=== PATIENT | female | born 1970 | race Caucasian/White ===

== ENCOUNTER 2020-11-02 14:03 | Emergency (ER) | payer BC, OTHER ==
[2020-11-02] MEDS ORDERED: Aspirin 81 MG Tab.Chew PO ONE (14:12)
[2020-11-02] MEDS ORDERED: Metoprolol Tartrate 5 MG/5 ML SDV IVPUSH ONE ×3 (14:12→16:22)
[2020-11-02] MEDS ORDERED: Nitroglycerin 0.4 MG Tab.SL SL PRN (14:12)
[2020-11-02] MEDS ORDERED: Sodium Chloride 0.9% 1,000 ML IV ONE (14:14)
--- NOTE | 2020-11-02 14:19 | EDM.PDOC ---
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 Denies: Shortness of Breath, Cough Cardiovascular: Reports: Chest Pain Endocrine: Reports: No Symptoms GI/Abdominal: Reports: No Symptoms : Reports: No Symptoms Musculoskeletal: Reports: No Symptoms Skin: Reports: No Symptoms Neurological: Reports: No Symptoms Psychiatric: Reports: No Symptoms Hematologic/Lymphatic: Reports: No Symptoms Immunologic: Reports: No Symptoms ED EXAM, GENERAL - Physical Exam Exam: See Below Exam Limited By: No Limitations General Appearance: Alert, WD/WN, No Apparent Distress Nose: Normal Inspection Throat/Mouth: Normal Inspection, Normal Voice, No Airway Compromise Head: Atraumatic, Normocephalic Neck: Normal Inspection, Supple, Non-Tender, Full Range of Motion. No: Lymphadenopathy (R), Lymphadenopathy (L) Respiratory/Chest: No Respiratory Distress, Lungs Clear, Normal Breath Sounds, Chest Non-Tender Cardiovascular: No Edema, No Gallop, No Murmur, Tachycardia GI/Abdominal: Soft, Non-Tender, No Organomegaly, No Distention Back Exam: Normal Inspection, Full Range of Motion. No: CVA Tenderness (R), CVA Tenderness (L) Extremities: Normal Inspection, Non-Tender, No Pedal Edema Neurological: Alert, Oriented, CN II-XII Intact, Normal Cognition, No Motor/Sensory Deficits Psychiatric: Normal Affect, Normal Mood Skin Exam: Warm, Dry, Intact, Normal Color, No Rash Lymphatic: No Adenopathy Course - Vital Signs Last Recorded V/S: Last Vital Signs Temp Pulse 80 11/02/20 15:10 Resp 20 11/02/20 14:10 BP 148/94 H 11/02/20 15:10 Pulse Ox 97 11/02/20 14:10 - Orders/Labs/Meds Orders: Active Orders 24 hr Category Date Time Status EKG Documentation Completion [RC] ASDIRECTED Care 11/02/20 14:14 Active EKG Documentation Completion [RC] ASDIRECTED Care 11/02/20 14:33 Active CORONAVIRUS COVID-19 RADHA [MOLEC] Stat Lab 11/02/20 15:33 Ordered UA W/MICROSCOPIC [URIN] Stat Lab 11/02/20 14:14 Ordered Heparin Sodium/0.45% NaCl [Heparin 25,000 Units in 1/2 Med 11/02/20 15:00 Ordered NS 500 ML] 25,000 units in 500 ml IV TITRATE Nitroglycerin [Nitrostat] Med 11/02/20 14:12 Active 0.4 mg SL Q5M PRN Nitroglycerin/D5W [Nitroglycerin 25 MG/D5W 250 ML] Med 11/02/20 15:15 Ordered 25 mg in 250 ml IV TITRATE EKG 12 Lead [EK] Routine Ther 11/02/20 14:14 Ordered EKG 12 Lead [EK] Routine Ther 11/02/20 14:33 Ordered Medication Orders Heparin Sodium/Sodium Chloride (Heparin 25,000 Units In 1/2 Ns 500 Ml) 25,000 units in 500 mls @ 15.023 mls/hr IV TITRATE MINNIE; Protocol Nitroglycerin/Dextrose (Nitroglycerin 25 Mg/D5w 250 Ml) 25 mg in 250 mls @ 3 mls/hr IV TITRATE MINNIE; Protocol Last Admin: 11/02/20 15:24 Dose: 5 mcg/min, 3 mls/hr Documented by: LYLA Nitroglycerin (Nitroglycerin 0.4 Mg Tab.Sl) 0.4 mg SL Q5M PRN PRN Reason: Chest Pain Last Admin: 11/02/20 14:12 Dose: 0.4 mg Documented by: LYLA Labs: Laboratory Tests 11/02/20 11/02/20 11/02/20 Range/Units 14:30 14:30 14:30 WBC 11.8 H (3.0-10.3) x10-3/uL RBC 5.11 (3.60-5.20) x10(6)uL Hgb 14.7 (11.4-15.5) g/dL Hct 44.0 (34.2-48.2) % MCV 86.2 (76.7-100.5) fL MCH 28.7 (23.9-33.9) pg MCHC 33.3 (31.9-34.8) g/dL RDW 13.2 (12.3-16.5) % Plt Count 339 (151-488) x10(3)uL MPV 7.2 (7.1-12.4) fL Neut % (Auto) 72.2 (30.8-76.2) % Lymph % (Auto) 20.4 (18.4-52.1) % Menard % (Auto) 6.3 (4.4-15.7) % Eos % (Auto) 0.8 (0.6-8.1) % Baso % (Auto) 0.3 (0.2-1.5) % Neut # (Auto) 8.5 H (1.5-6.3) x10-3/uL Lymph # (Auto) 2.4 (1.0-4.4) x10-3/uL Menard # (Auto) 0.7 (0.3-1.0) x10-3/uL Eos # (Auto) 0.1 (0.0-0.8) x10-3/uL Baso # (Auto) 0.0 (0.0-0.1) x10-3/uL PT (9.0-11.1) sec INR (1.00-1.24) APTT (24.4-33.2) SECONDS D-Dimer, Quantitative 0.25 (0.0-0.59) mg/LFEU Sodium 139 (135-145) mmol/L Potassium 3.6 (3.5-5.3) mmol/L Chloride 99 L (100-110) mmol/L Carbon Dioxide 26 (21-32) mmol/L BUN 4 L (7-18) mg/dL Creatinine 0.8 (0.55-1.02) mg/dL Est Cr Clr Drug Dosing 78.76 mL/min Estimated GFR (MDRD) > 60 (>60) BUN/Creatinine Ratio 5.0 L (9-20) Glucose 88 (80-116) mg/dL Calcium 8.9 (8.6-10.2) mg/dL Total Bilirubin 0.4 (0.1-1.3) mg/dL AST 28 H (5-25) IU/L ALT 31 (12-36) U/L Alkaline Phosphatase 100 (56-112) IU/L Troponin I (4.0-60.3) pg/mL C-Reactive Protein (0.5-0.9) mg/dL Total Protein 7.9 (6.0-8.0) g/dL Albumin 3.6 (3.5-5.2) g/dL Globulin 4.3 g/dL Albumin/Globulin Ratio 0.8 11/02/20 11/02/20 Range/Units 14:30 14:30 WBC (3.0-10.3) x10-3/uL RBC (3.60-5.20) x10(6)uL Hgb (11.4-15.5) g/dL Hct (34.2-48.2) % MCV (76.7-100.5) fL MCH (23.9-33.9) pg MCHC (31.9-34.8) g/dL RDW (12.3-16.5) % Plt Count (151-488) x10(3)uL MPV (7.1-12.4) fL Neut % (Auto) (30.8-76.2) % Lymph % (Auto) (18.4-52.1) % Menard % (Auto) (4.4-15.7) % Eos % (Auto) (0.6-8.1) % Baso % (Auto) (0.2-1.5) % Neut # (Auto) (1.5-6.3) x10-3/uL Lymph # (Auto) (1.0-4.4) x10-3/uL Menard # (Auto) (0.3-1.0) x10-3/uL Eos # (Auto) (0.0-0.8) x10-3/uL Baso # (Auto) (0.0-0.1) x10-3/uL PT 9.8 (9.0-11.1) sec INR 0.90 L (1.00-1.24) APTT 22.9 L (24.4-33.2) SECONDS D-Dimer, Quantitative (0.0-0.59) mg/LFEU Sodium (135-145) mmol/L Potassium (3.5-5.3) mmol/L Chloride (100-110) mmol/L Carbon Dioxide (21-32) mmol/L BUN (7-18) mg/dL Creatinine (0.55-1.02) mg/dL Est Cr Clr Drug Dosing mL/min Estimated GFR (MDRD) (>60) BUN/Creatinine Ratio (9-20) Glucose (80-116) mg/dL Calcium (8.6-10.2) mg/dL Total Bilirubin (0.1-1.3) mg/dL AST (5-25) IU/L ALT (12-36) U/L Alkaline Phosphatase (56-112) IU/L Troponin I 1234.4 H* (4.0-60.3) pg/mL C-Reactive Protein 1.4 H (0.5-0.9) mg/dL Total Protein (6.0-8.0) g/dL Albumin (3.5-5.2) g/dL Globulin g/dL Albumin/Globulin Ratio Meds: Medications Generic Name Dose Route Start Last Admin Trade Name Sean PRN Reason Stop Dose Admin Heparin Sodium/Sodium Chloride 25,000 units in 500 mls @ 15.023 mls/hr 11/02/20 15:00 Heparin 25,000 Units In 1/2 Ns 500 Ml IV TITRATE MINNIE Protocol 12 UNITS/KG/HR Nitroglycerin/Dextrose 25 mg in 250 mls @ 3 mls/hr 11/02/20 15:15 11/02/20 15:24 Nitroglycerin 25 Mg/D5w 250 Ml IV 5 mcg/min TITRATE MINNIE 3 mls/hr Administration Protocol 5 MCG/MIN Nitroglycerin 0.4 mg 11/02/20 14:12 11/02/20 14:12 Nitroglycerin 0.4 Mg Tab.Sl SL 0.4 mg Q5M PRN Administration Chest Pain Discontinued Medications Generic Name Dose Route Start Last Admin Trade Name Sean PRN Reason Stop Dose Admin Aspirin 324 mg 11/02/20 14:12 11/02/20 14:10 Aspirin 81 Mg Tab.Chew PO 11/02/20 14:13 324 mg ONETIME ONE Administration Sodium Chloride 1,000 mls @ 999 mls/hr 11/02/20 14:14 11/02/20 14:25 Normal Saline IV 11/02/20 15:14 999 mls/hr .BOLUS ONE Administration Nitroglycerin/Dextrose Confirm 11/02/20 15:06 11/02/20 15:24 Nitroglycerin 25 Mg/D5w 250 Ml Administered 11/02/20 15:07 Not Given Dose 25 mg in 250 mls @ as directed .ROUTE .STK-MED ONE Lorazepam 0.5 mg 11/02/20 15:04 11/02/20 15:29 Lorazepam 2 Mg/Ml Sdv IVPUSH 11/02/20 15:05 0.5 mg ONETIME ONE Administration Metoprolol Tartrate 5 mg 11/02/20 14:12 11/02/20 14:20 Metoprolol Tartrate 5 Mg/5 Ml Sdv IVPUSH 11/02/20 14:13 5 mg ONETIME ONE Administration Metoprolol Tartrate 5 mg 11/02/20 15:03 11/02/20 15:10 Metoprolol Tartrate 5 Mg/5 Ml Sdv IVPUSH 11/02/20 15:04 5 mg ONETIME ONE Administration Metoprolol Tartrate Confirm 11/02/20 15:06 11/02/20 15:24 Metoprolol Tartrate 5 Mg/5 Ml Sdv Administered 11/02/20 15:07 Not Given Dose 5 mg .ROUTE .STK-MED ONE - Re-Assessments/Exams Free Text/Narrative Re-Assessment/Exam: 11/02/20 15:[address] [facility], multiple calls to [facility] over 45 minutes could not be completed [facility] reached via [phone] who reported that there main line is down Lorraine STEEN given report and is trying to reach the hospitalist 11/02/20 16:26 d/w Dr Mcgaryr hospitalist who requested that shirt presser review EKGs, these were faxed directly. [facility] just called back with a room assignment in ICU, pt notified. 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 Departure - Departure Time of Disposition: 16:25 Disposition: DC/Tfer to Acute Hospital 02 Reason for Transfer *Q: Other (cardiology consult) Clinical Impression: ST elevation (STEMI) myocardial infarction, Anterior ST segment depression, Inferior ST segment depression, Elevated C-reactive protein (CRP) Sepsis Event Note (ED) - Focused Exam Vital Signs: Vital Signs Pulse Pulse Resp BP BP Pulse Ox 11/02/20 15:10 80 148/94 H 11/02/20 14:20 100 145/91 H 11/02/20 14:12 172/105 H 11/02/20 14:10 97 20 167/102 H 97 - My Orders Last 24 Hours: My Active Orders 11/02/20 14:12 Nitroglycerin [Nitrostat] 0.4 mg SL Q5M PRN 11/02/20 14:14 EKG Documentation Completion [RC] ASDIRECTED UA W/MICROSCOPIC [URIN] Stat EKG 12 Lead [EK] Routine 11/02/20 14:33 EKG Documentation Completion [RC] ASDIRECTED EKG 12 Lead [EK] Routine 11/02/20 15:00 Heparin Sodium/0.45% NaCl [Heparin 25,000 Units in 1/2 NS 500 ML] 25,000 units in 500 ml IV TITRATE 11/02/20 15:15 Nitroglycerin/D5W [Nitroglycerin 25 MG/D5W 250 ML] 25 mg in 250 ml IV TITRATE 11/02/20 15:33 CORONAVIRUS COVID-19 RADHA [MOLEC] Stat - Assessment/Plan Last 24 Hours: My Active Orders 11/02/20 14:12 Nitroglycerin [Nitrostat] 0.4 mg SL Q5M PRN 11/02/20 14:14 EKG Documentation Completion [RC] ASDIRECTED UA W/MICROSCOPIC [URIN] Stat EKG 12 Lead [EK] Routine 11/02/20 14:33 EKG Documentation Completion [RC] ASDIRECTED EKG 12 Lead [EK] Routine 11/02/20 15:00 Heparin Sodium/0.45% NaCl [Heparin 25,000 Units in 1/2 NS 500 ML] 25,000 units in 500 ml IV TITRATE 11/02/20 15:15 Nitroglycerin/D5W [Nitroglycerin 25 MG/D5W 250 ML] 25 mg in 250 ml IV TITRATE 11/02/20 15:33 CORONAVIRUS COVID-19 RADHA [MOLEC] Stat
[2020-11-02] MEDS ORDERED: Heparin Sodium/0.45% NaCl 25,000 UNITS/500 ML BAG IV SCH (15:00)
--- NOTE | 2020-11-02 15:03 | CR ---
INDICATION: Chest pain. CHEST ONE VIEW: AP portable upright view of the chest revealed the heart to be normal in size and shape. Overlying EKG leads are noted. Mediastinum was unremarkable. A mild dextroconcave scoliosis of the lower thoracic spine is suggested. Interstitial markings are slightly prominent which may be fibrotic in nature but should be correlated clinically. A definite active infiltrate or effusion was not identified. IMPRESSION: 1. No definite acute process. 2. Somewhat prominent interstitial markings. 3. Mild scoliosis. MTDD
[2020-11-02] MEDS ORDERED: LORazepam 2 MG/ML SDV IVPUSH ONE (15:04)
[2020-11-02] MEDS ORDERED: Nitroglycerin/D5W 25 MG/250 ML BOTTLE ONE (15:06)
[2020-11-02] MEDS ORDERED: Metoprolol Tartrate 5 MG/5 ML SDV ONE (15:06)
[2020-11-02] MEDS ORDERED: Nitroglycerin/D5W 25 MG/250 ML BOTTLE IV SCH (15:15)
[2020-11-02] MEDS ORDERED: Heparin Sodium 5,000 Units/ML Vial IVPUSH ONE (15:45)
--- OUTSIDE RECORDS SUMMARY | 2020-11-04 16:03 | XMSREPORT ---
:1970 Author Organization [facility] s Address [address] [place] [address] [address] [place] [address] Care Team Providers Name Role Phone Josey Carter MD Primary Care Provider Provider, Attributed RESOURCE Attributed Provider Unavailab le Reason for Referral Comprehensive Primary Care Plus (Routine) Status Reason Specialty Diagnoses / Referred By Referred To Contact Procedures Contact New Request CARDIOLOGY Diagnoses NSTEMI (non-ST elevated myocardial infarction) (HCC) Rafael Arreola MD o Cardiology [address] [address] [place], [place] Phone: [phone] Fax: Scheduling Instructions This is an electronic referral. Reason for Visit Reason Comments Auth/Cert Status Reason Specialty Diagnoses / Procedures Referred By C ontact Referred To Contact Encounter Details Date Type Department Care Team Description 11/02/2020 - [facility] Provider, Generic Hosp Pr ocedure NSTEMI (non-ST 11/04/2020 Encounter CENTER [facility] Shobha Reaves MD [address] [place] [address] [phone] elevated myocardial [address] [facility] Rafael Arreola MD [address] [place] [address] [phone] infarction) (HCC) [place] [address] Toni Mcgarry DO [address] [place] [address] [phone] Allergies No Known Active Allergiesdocumented as of this encounter (statuses as of 11/04/2020) Medications Medication Sig Dispensed Refills Start Date End Date Status ALPRAZolam (XANAX) 0.5 Take 1 tablet (0.5 30 tablet 0 08/12/19 21 Active mg tabletIndications: mg) by mouth 1 Panic attack time a day as needed for anxiety drospirenone-ethinyl TAKE 1 TABLET ONCE 84 tablet 0 10/20/2020 Active estradiol (GIANVI) DAILY 3-0.02 mg tabletIndications: control counseling Additional Information Patient taking differently: 1 tablet Oral Every evening, TAKE 1 TABLET ONCE DAILY, Reported on 11/02/2020 sertraline (ZOLOFT) 100 mg TAKE 1 AND 1/2 TABLETS 135 tablet 0 10/20/2020 Active tabletIndications: Anxiety and (150MG)ONCE DAILY depression Additional Information Patient taking differently: 150 mg Oral Every evening, TAKE 1 AND 1/2 TABLETS (150MG)ONCE DAILY, Reported on 11/02/2020 ticagrelor (BRILINTA) 90 Take 1 tablet 60 tablet 11 11/04/2020 Active mg tabletIndications: (90 mg) by NSTEMI (non-ST elevated mouth 2 times myocardial infarction) a day ([facility]) metoprolol succinate Take 1 tablet 90 tablet 0 11/05/2020 Active (TOPROL XL) 50 mg SR (50 mg) by tablet (24 mouth 1 time hr)Indications: NSTEMI per day Hold (non-ST elevated for SBP<=90 OR myocardial infarction) DBP<=60 heart ([facility]) rate <=55 atorvaSTATin (LIPITOR) Take 1 tablet 90 tablet 0 11/04/2020 Active 40 mg tabletIndications: (40 mg) by NSTEMI (non-ST elevated mouth every myocardial infarction) night at ([facility]) bedtime aspirin (ECOTRIN LOW Take 1 tablet 180 tablet 1 11/05/2020 Active STRENGTH) 81 MG enteric (81 mg) by coated mouth 1 time tabletIndications: per day NSTEMI (non-ST elevated myocardial infarction) ([facility]) ketoconazole (NIZORAL) Apply 120 mL 3 02/21/202011/04 Discontinued 2% shampooIndications: topically /2020 (Stop Taking at Seborrheic dermatitis of every night at Discharge) scalp bedtime clobetasol propionate Apply 50 mL 3 03/04/202011/04 Discontinued (TEMOVATE) 0.05% topically ( Stop Taking at solutionIndications: time a day as Discharge) Seborrheic dermatitis of needed for scalp itching or rash documented as of this encounter (statuses as of 11/04/2020) Active Problems Problem Noted Date NSTEMI (non-ST elevated myocardial infarction) 021 Generalized anxiety disorder 04/16/2018 Major depressive disorder, recurrent episode, moderate 04/16/2018 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 Anxiety and depression 04/04/2018 Panic attack 04/04/2018 documented as of this encounter (statuses as of 11/04/2020) Resolved Problems Problem Noted Date Resolved Date Routine general medical examination at formerly [facility] 009 04/04/2018 facility documented as of this encounter (statuses as of 11/04/2020) Social History Tobacco Use Types Packs/Day Years Used Date Never Smoker Smokeless Tobacco: Never Used Alcohol Use Standard Drinks/Week Comments No 0 (1 standard drink = 0.6 oz pure alcoho l) Alcohol Habits Answer Date Recorded How often do you have a drink containing alcohol? Monthly or less 11/02/2020 How many drinks containing alcohol do you have on a 1 or 2 11/02/2020 typical day when you are drinking? How often do you have six or more drinks on one Never 11/02/2020 occasion? Comment: Not asked Social Isolation Answer Date Recorded In a typical week, how many times do you More than three randy es a week 07/04/2018 talk on the phone with family, friends, or neighbors? How often do you get together with friends More than three t imes a week 07/04/2018 or relatives? How often do you attend religious or More than 4 times per year 07/04/2018 mosque services? Do you belong to any clubs or Yes 07/04/2018 organizations such as religious groups, unions, fraternal or athletic groups, or school groups? How often do you attend meetings of the More than 4 times pe r year 07/04/2018 clubs or organizations you belong to? Are you now , , , 07/04/2018 , never or living with a partner? Physical Activity Answer Date Recorded On average, how many days per week do you engage in moderate to 4 days 07/04/2018 strenuous exercise (like walking fast, running, jogging, dancing, swimming, biking, or other activities that cause a light or heavy sweat)? On average, how many minutes do you engage in exercise at th is 30 min 07/04/2018 level? Stress Answer Date Recorded Do you feel stress - tense, restless, nervous, or anxious, N ot at all 07/04/2018 or unable to sleep at night because your mind is troubled all the time - these days? Financial Resource Strain Answer Date Recorded How hard is it for you to pay for the very basics like Not h anthony at all 07/04/2018 food, housing, medical care, and heating? Intimate Partner Violence Answer Date Recorded Within the last year, have you been afraid of your partner o r No 07/04/2018 ex-partner? Within the last year, have you been humiliated or emotionall y No 07/04/2018 abused in other ways by your partner or ex-partner? Within the last year, have you been kicked, hit, slapped, or No 07/04/2018 otherwise physically hurt by your partner or ex-partner? Within the last year, have you been raped or forced to have any No 07/04/2018 kind of sexual activity by your partner or ex-partner? Food Insecurity Answer Date Recorded Within the past 12 months, you worried that your food would Never true 07/04/2018 run out before you got money to buy more. Within the past 12 months, the food you bought just didn't N ever true 07/04/2018 last and you didn't have money to get more. Transportation Needs Answer Date Recorded In the past 12 months, has lack of transportation kept you f rom No 07/04/2018 medical appointments or from getting medications? In the past 12 months, has lack of transportation kept you f rom No 07/04/2018 meetings, work, or getting things needed for daily living? Sexually Active Control Partners Comments Yes Male Sex Assigned at Date Recorded Female 10/24/2019 4:12 PM CDT documented as of this encounter Last Filed Vital Signs Vital Sign Reading Time Taken Comments Blood Pressure 130/79 11/04/2020 11:00 AM CDT Pulse 95 11/04/2020 11:00 AM CDT Temperature 36.9 C (98.4 F) 11/04/2020 12:00 PM CDT Respiratory Rate 20 11/04/2020 9:00 AM CDT Oxygen Saturation 97% 11/04/2020 11:00 AM CDT Inhaled Oxygen Concentration - - Weight 65 kg (143 lb 4.8 oz) 11/02/2020 6:00 PM CDT Height 167.6 cm (5' 6") 11/02/2020 6:00 PM CDT Body Mass Index 23.13 11/02/2020 6:00 PM CDT documented in this encounter Functional Status Functional Status Response Date of Assessment Do you have difficulty with walking, balance, climbing No 12/06/2017 stairs, or had a fall in the last 3 months? documented as of this encounter Discharge Summaries Not on filedocumented in this encounter Medications at Time of Discharge Medication Sig Dispensed Refills Start Date End Date ticagrelor (BRILINTA) 90 Take 1 tablet (90 60 tablet 11 10/09 mg tabletIndications: mg) by mouth 2 times NSTEMI (non-ST elevated a day myocardial infarction) ([facility]) metoprolol succinate Take 1 tablet (50 90 tablet 0 11/06/19 21 (TOPROL XL) 50 mg SR mg) by mouth 1 time tablet (24 hr)Indications: per day Hold for NSTEMI (non-ST elevated SBP<=90 OR DBP<=60 myocardial infarction) heart rate <=55 (HCC) atorvaSTATin (LIPITOR) 40 Take 1 tablet (40 90 tablet 0 mg tabletIndications: mg) by mouth every NSTEMI (non-ST elevated night at bedtime myocardial infarction) ([facility]) aspirin (ECOTRIN LOW Take 1 tablet (81 180 tablet 1 11/06/19 21 STRENGTH) 81 MG enteric mg) by mouth 1 time coated tabletIndications: per day NSTEMI (non-ST elevated myocardial infarction) ([facility]) drospirenone-ethinyl TAKE 1 TABLET ONCE 84 tablet 0 021 estradiol (GIANVI) 3-0.02 DAILY mg tabletIndications: control counseling sertraline (ZOLOFT) 100 mg TAKE 1 AND 1/2 135 tablet 0 10/20 tabletIndications: Anxiety TABLETS (150MG)ONCE and depression DAILY ALPRAZolam (XANAX) 0.5 mg Take 1 tablet (0.5 30 tablet 0 tabletIndications: Panic mg) by mouth 1 time attack a day as needed for anxiety documented as of this encounter Progress Notes Manda Pina, PHARM D - 11/02/2020 6:52 PM CDT 11/02/2020 6:52 PM CDT Patient was seen by pharmacy for medication reconciliation. Home medications have been reconciled and updated on the home medication list to match the patient's home usage. Manda Pina PharmD, BCCCP documented in this encounter H&P Notes Shobha Gan MD - 11/02/2020 6:34 PM CDT Hospital Admission History and Physical Assessment / Plan Dickson is a 50-year-old female with no known CAD, history of dyslipidemia, family history of heart disease who came in as a direct admit for evaluation of chest pain with elevated troponin, EKG changes. She complained of chest pain yesterday around noon, took baby aspirin and couple of Tylenols, woke up this morning again with the chest pain, took 2 Tylenol but it did not help so she reported to outside ER. Initial EKG on arrival showed ST elevation changes in aVL with reciprocal changes . Troponin was elevated 1234, the ranges of 460. Patient was given nitroglycerin and aspirin 325 which helped withthe pain, and repeat EKG showed resolved changes of ST elevation. These findings were reviewed withon-call cardiology, and patient was accepted for transfer here to [facility] floor on heparin and nitro drip Labs at OSH- trop 1234, crp 1.4 inr 0.9 ast 28 alt 31 wbc 11.8 platelets 339 dimer 0.25 sodium 139 k3.6 cr 0.8 . CXR - no acute process On arrival patient is chest pain-free. Blood pressure is 136/90, heart rate is 80. # NSTEMI With changes of ST elevation on aVL with reciprocal changes at outside hospital Risk factorsdyslipidemia, family history of heart disease Cardiology consult requested. Spoke with Dr. Newsome. Angiogram tomorrow am unless she has pain tonight or has acute ST changes on EKG - repeat stat EKG showed t wave v1 and trend troponin. - echocardiogram ordered Telemetry Lipid panel, A1c ordered Dimer negative at outside hospital Heparin and nitro drip re initiated Patient was given aspirin 325 at outside hospital will start 81 mg from tomorrow. Added metoprolol and statins #AnxietyXanax, Zoloft #Patient is on control pills CODE STATUS full code DVT prophylaxis not indicated as the patient is on heparin drip HPI / History / ROS HPI Dickson is a 50-year-old female with no known CAD, history of dyslipidemia, family history of heart disease who came in as a direct admit for evaluation of chest pain with elevated troponin, EKG changes. She complained of chest pain yesterday around noon, took baby aspirin and couple of Tylenols, woke up this morning again with the chest pain, took 2 Tylenol but it did not help so she reported to outside ER. Initial EKG on arrival showed ST elevation changes in aVL with reciprocal changes . Troponin was elevated 1234, the ranges of 460. Patient was given nitroglycerin and aspirin 325 which helped withthe pain, and repeat EKG showed resolved changes of ST elevation. These findings were reviewed withon-call cardiology, and patient was accepted for transfer here to [facility] floor on heparin and nitro drip On arrival patient is chest pain-free. Blood pressure is 136/90, heart rate is 80. Patient reported discomfort pressure-like sensation in the retrosternal area radiated to both sides and right side of the jaw. It was associated with some diaphoresis. She declined any palpitations She never had coronary angiogram She had stress test years ago that looked okay History Prior to Admission Medications Prescriptions Last Dose Informant Patient Reported? Taking? ALPRAZolam (XANAX) 0.5 mg tablet No No Sig: Take 1 tablet (0.5 mg) by mouth 1 time a day as needed for anxiety clobetasol propionate (TEMOVATE) 0.05% solution No No Sig: Apply topically 1 time a day as needed for itching or rash drospirenone-ethinyl estradiol (GIANVI) 3-0.02 mg tablet No No Sig: TAKE 1 TABLET ONCE DAILY ketoconazole (NIZORAL) 2% shampoo No No Sig: Apply topically every night at bedtime sertraline (ZOLOFT) 100 mg tablet No No Sig: TAKE 1 AND 1/2 TABLETS (150MG)ONCE DAILY Facility-Administered Medications: None No Known Allergies No past medical history on file. Past Surgical History: Procedure Laterality Date CORE NEEDLE BIOPSY LT CORE BENIGN Family History Problem Relation Age of Onset Breast Cancer Mother Breast Cancer Maternal Grandmother Social History Socioeconomic History Marital status: Spouse name: Not on file Number of children: 2 Years of education: Not on file Highest education level: Not on file Tobacco Use Smoking status: Never Smoker Smokeless tobacco: Never Used Substance and Sexual Activity Alcohol use: No Alcohol/week: 0.0 standard drinks Drug use: No Sexual activity: Yes Partners: Male Social Determinants of Health Physical Activity: Days of Exercise per Week: Minutes of Exercise per Session: Stress: Feeling of Stress : Social Connections: Frequency of Communication with Friends and Family: Frequency of Social Gatherings with Friends and Family: Attends Caodaism Services: Active Member of Clubs or Organizations: Attends Club or Organization Meetings: Marital Status: Intimate Partner Violence: Fear of Current or Ex-Partner: Emotionally Abused: Physically Abused: Sexually Abused: Financial Resource Strain: Difficulty of Paying Living Expenses: Food Insecurity: Worried About Running Out of Food in the Last Year: Ran Out of Food in the Last Year: Transportation Needs: Lack of Transportation (Medical): Lack of Transportation (Non-Medical): Review of Systems Review of Systems Constitutional: Positive for activity change. HENT: Negative for congestion. Eyes: Negative for visual disturbance. Respiratory: Negative for shortness of breath. Cardiovascular: Positive for chest pain. Gastrointestinal: Negative for abdominal pain. Genitourinary: Negative for dysuria. Musculoskeletal: Positive for arthralgias. Skin: Negative for rash. Allergic/Immunologic: Negative for immunocompromised state. Neurological: Negative for weakness. Hematological: Does not bruise/bleed easily. Psychiatric/Behavioral: Negative for agitation. Physical / Results Current Vital Signs Temp: 98.2 F (36.8 C) BP: 122/81 Weight: 65 kg (143 lb 4.8 oz) SpO2: 98 % Resp: 18 Pulse: 77 Current BMI (>50 = increased risk): 23.14 O2 Device: Room Air Pain Ratin Physical Exam HENT: Head: Normocephalic. Nose: Nose normal. Mouth/Throat: Mouth: Mucous membranes are moist. Eyes: Conjunctiva/sclera: Conjunctivae normal. Cardiovascular: Rate and Rhythm: Normal rate. Pulses: Normal pulses. Pulmonary: Effort: Pulmonary effort is normal. Abdominal: Palpations: Abdomen is soft. Musculoskeletal: Cervical back: Neck supple. Right lower leg: No edema. Left lower leg: No edema. Skin: General: Skin is warm. Neurological: Mental Status: She is alert and oriented to person, place, and time. Psychiatric: Mood and Affect: Mood normal. documented in this encounter Procedure Notes Kanchan Dior MD - 11/03/2020 3:23 PM CDT Immediate Post-Cardiac Catheterization Progress Note Att. Phys: Rafael Arreola MD Operative Date: 11/03/2020 Surgeon: Kanchan Dior MD Sand Blaster: none Pre-Operative Diagnosis: NSTEMI Post-Operative Diagnosis: 90 % OM1 treated with 2.5 x 22 resolute NIKHIL post dilated with 2.75 NC balloon to 18 LUISA pressure with excellent results.mormal EF Anesthesia Type: See Junior Brand Manager procedure log Operative Procedure: coronary angio, LHC, LVgram Specimens: None Fluids Given: See Junior Brand Manager procedure log Urine Output: See Junior Brand Manager procedure log Estimated Blood Loss: 10 mL Drains: none Findings: Coronary anatomy- Left ventriculography- Hemodynamics- Complications: None Disposition: Postoperative Condition: stable The procedure was performed using moderate conscious sedation. The patient was monitored utilizing continuous pulse oximetry, continuous telemetry/bedside cardiac monitoring and intermittent blood pressure measurements throughout the procedure without notable aberration in vitals. Please see the patients procedure log for further information. procedure start 3:00 and end time 3:23 . documented in this encounter Miscellaneous Notes Clinical Team - Annamarie Johnson RN - 11/04/2020 1:00 PM CDT Discharge Summary Attending Physician: Rafael Arreola MD Admit Date: 11/02/2020 Discharge Date: 11/04/20 Primary Care Physician: Chava Carter MD Pt discharged home at 1300 with via family vehicle. All education and concerns gone over with patient and all questions answered. All belongings sent home with patient. are Planning - Annamarie Johnson RN - 11/04/2020 10:46 AM CDT Problem: RISK FOR DECREASED CARDIAC TISSUE PERFUSION Goal: ACTIVITY TOLERANCE Description: DESCRIPTION: Physiologic response to energy-consuming movements with daily activities. 1=Severly compromised, 2=Substantially compromised, 3=Moderately compromised, 4=Mildly compromised, 5=Not compromised. Outcome: Outcome acceptable for discharge Goal: CARDIOPULMONARY STATUS Description: DESCRIPTION: Adequacy of blood volume ejected from the ventricles in exchange of carbondioxide and oxygen at the alveolar level. 1=Severe deviation from normal range, 2=Substantial deviation from normal range, 3=Moderate deviation from normal range, 4=Mild deviation from normal range, 5=No deviation from normal range. 11/04/2020 1046 by Annamarie Johnson RN Outcome: Outcome acceptable for discharge 11/04/2020 1010 by Annamarie Johnson RN Flowsheets (Taken 11/04/2020 1010) Initial Score: 4 Target Score: 5 Plan of care reviewed with: Patient Patient specific goal for the day: Patient will report no incidences of chest pain, will start new regime of cardiac medications. Patient specific goal for the stay: Patient will identify which signs and symptoms to report to her doctor, will take medications as prescribed. Achieve goal for stay: By discharge Patient Progress: Patient has no reports of chest pain, education provided, new regime of cardiac medications started. Goal: TISSUE PERFUSION: CARDIAC Description: DEFINITION: Adequacy of blood flow through the coronary vasculature to maintain heart function. 1 = Severe deviation from normal range, 2 = Substantial deviation from normal range, 3 = Moderate deviation from normal range, 4 = Mild deviation from normal range, 5 = No deviation from normal range. Outcome: Outcome acceptable for discharge are Planning - Annamarie Johnson RN - 11/04/2020 10:12 AM CDT Problem: RISK FOR DECREASED CARDIAC TISSUE PERFUSION Goal: CARDIOPULMONARY STATUS Description: DESCRIPTION: Adequacy of blood volume ejected from the ventricles in exchange of carbondioxide and oxygen at the alveolar level. 1=Severe deviation from normal range, 2=Substantial deviation from normal range, 3=Moderate deviation from normal range, 4=Mild deviation from normal range, 5=No deviation from normal range. Flowsheets (Taken 11/04/2020 1010) Initial Score: 4 Target Score: 5 Plan of care reviewed with: Patient Patient specific goal for the day: Patient will report no incidences of chest pain, will start new regime of cardiac medications. Patient specific goal for the stay: Patient will identify which signs and symptoms to report to her doctor, will take medications as prescribed. Achieve goal for stay: By discharge Patient Progress: Patient has no reports of chest pain, education provided, new regime of cardiac medications started. [facility] - Freida Graf EP - 11/04/2020 9:26 AM CDT Cardiac Rehab Phase 1 Inpatient Note: Diagnosis: Stent x1 Physical Activity Completed: Ambulate in jo Distance Ambulated: 300 feet Ambulation Assistance: independent Patient response to Exercise: good Exercise Comments: Steady gait with walking, asymptomatic. Gaitbelt used with activity Vitals Resting Heart Rate - 97 bpm Exercise Heart Rate - 113 bpm O2 Device - RA Exercise SpO2 - 95% Assessment/Plan: Tolerates activity well. Encouraged patient to ambulate in hallway 3-4 times daily as tolerated with gradual progression. -Progress as tolerated -Patient may self ambulate -Patient referred to outpatient Cardiac Rehab program -Continue to follow until until Discharge -Home activity and exercise teaching completed Recommendation: "Outpatient Cardiac Rehab- mary[facility]en Continue Inpatient Cardiac Rehab Plan of Care daily until discharge. Cardiac Rehab [facility] Pager: [phone] ase Mgmt - Freida Awan RN - 11/04/2020 8:45 AM CDT CASE MANAGEMENT / SOCIAL SERVICE FINAL TRANSITION PLAN TRANSITION DATE: 11/04 TRANSITION TIME: Per Floor INTENDED PAYER SOURCE FOR AGENCY: Not Applicable TRANSITION DESTINATION: Home w/ OP Cardiac Rehab [place], [place] DOES ACCEPTING FACILITY REQUIRE COVID TESTING BEFORE DISCHARGE: N/A TRANSITION TRANSPORTATION: Family Car TRANSPORTATION PAYMENT: Not applicable TRANSITION CHOICES OFFERED: Cardiac Rehab Home: Family/Friend Support DOES THE PATIENT HAVE A PRIMARY CARE PHYSICIAN? Yes Chava Carter MD PATIENT / SUBSTITUTE DECISION MAKER GOAL UPON TRANSITION: First Choice: Cardiac Rehab Home: Family/Friend Support PATIENT CHOICE EDUCATION: Not applicable MEDICARE 3 IP MIDNIGHT CRITERIA MET: N/A RESOURCE(S) PROVIDED: nothing needed at this time DOES PATIENT HAVE CLOTHING TO WEAR AT DISCHARGE? Yes ANTICIPATED MODE OF TRANSPORT TO AND FROM FOLLOW UP APPOINTMENTS: Drive self Family Car VERIFIED CORRECT PHARMACY IS ENTERED FOR DISCHARGE: Yes - Pharmacy: [id number] [id number] METHOD OF PRESCRIBING MEDICATIONS: Medications to be E-prescribed to above pharmacy TRANSITION ROUNDING COMPLETED WITH THE FOLLOWING: Harbor Engineer Attending MD COMMENTS / PATIENT AND FAMILY RESPONSE TO PLAN: Plan for DC home with OP Cardiac Rehab per MD, see notes/orders. Pt aware/agreeable to transition plan, family will transport. SPECIAL TRANSITION DAY INSTRUCTIONS TO NURSE / MD: Routine home discharge CURRENT READMISSION RISK SCORE / HANDOFF: Predictive Risk Score Risk of Unplanned Readmission: 7.6 Handoff given: N/A SIGNED: SARAHI Horton, senior specialist [facility] Office (Ph): [phone] [facility] (Ph): [phone] Clinical Team - Anupama Deluca RN - 11/04/2020 5:57 AM CDT Shift Summary: 190 0700 No acute events this shift. Neuro: A/O x4, PERRLA, follows commands in all extremities. Afebrile. Cardiac: HR 60-70, NSR. Denies chest pain. BP WDL. Respiratory: VSS RA GI/: Heart healthy diet, good intake. No BM this shift. Bathroom privileges, voids appropriately. Musculoskeletal: Up SBA. Pain: Denies pain. Gtts: No drips at this time. Pt slept well t/o the night. Will continue to monitor and report to oncoming shift. are Planning - Anupama Deluca RN - 11/04/2020 1:51 AM CDT Problem: RISK FOR DECREASED CARDIAC TISSUE PERFUSION Goal: TISSUE PERFUSION: CARDIAC Description: DEFINITION: Adequacy of blood flow through the coronary vasculature to maintain heart function. 1 = Severe deviation from normal range, 2 = Substantial deviation from normal range, 3 = Moderate deviation from normal range, 4 = Mild deviation from normal range, 5 = No deviation from normal range. Flowsheets (Taken 11/04/2020 0148) Initial Score: 4 Target Score: 5 Plan of care reviewed with: Patient Patient specific goal for the day: Remain free of chest pain Patient specific goal for the stay: Return to baseline Achieve goal for stay: By discharge Patient Progress: Pt had stent placement yesterday has remained free of chest pain through the night. linical Team - Annamarie Johnson RN - 11/03/2020 6:25 PM CDT [id number] Shift Summary Summary Allen Events: Angiogram performed today with one stent placed. Patient stated no chest pain throughoutthe night. Troponin levels continue to trend downward. Assessment Cardiac: HR 60-70, Rhythym Normal Sinus Rhythm, BP 140-120 SBP Respiratory: Lungs sound clear, Oxygenation stable on Room Air Neurological: Oriented x4, follows commands, afebrile, pain rated 0/10. GI/: 1 BM, voids via bathroom privileges Musculoskeletal: independent activity, turned every two hours by self. Other: NS running at 125 mL/hr. linical Team - Annamarie Johnson RN - 11/03/2020 4:07 PM CDT Upon Transfer to [facility] from [facility], skin assessment completed with Nirmala Orozco RN Upon skin assessment including pressure points findings include: noted R) radial angiogram site withband in place. No other skin issues noted. Plan/Intervention Encourage return to baseline activity, frequent repositioning in bed. Case Mgmt - Pending Sale To [facility], Freida Baires RN - 11/03/2020 9:46 AM CDT CASE MANAGEMENT / SOCIAL SERVICE TRANSITION PLAN - INITIAL ASSESSMENT TRANSITION PLAN: Awaiting Medical Doctor Recommendations for Transition Will Continue to Follow for Support and Progression Towards Final Transition Plan BARRIERS TO TRANSITION: Medical barriers:Cardiology Consult, Heparin & Nitro gtts, Monitor Labs COMMENTS / PATIENT AND FAMILY RESPONSE TO PLAN: Chart reviewed. Met with pt in room today, CM role explained and discharge planning discussed. Pt lives at home withhusband and children (ages 17 & 14). Pt works outside the home and is independent with ADLs. Denies any use of services/assistance or DME. Pt drives, has a PCP, and manages own medications/finances. Pt's goal is to return home when medically ready, is able to provide transportation upon discharge. CM will continue to follow. ADMISSION DX: nstemi PATIENT STATUS: OP in a Bed RELEASE OF INFORMATION: Yes -- verbal for: discharge planning SOURCES OF INFORMATION (See demographics for contact information): Medical Record Patient CURRENT LIVING SITUATION / LEVEL OF ASSISTANCE: Lives with and children Independent COMMUNITY SERVICES: None HEALTHCARE DIRECTIVE: No POWER OF AUTO CLAIMS ADJUSTER: None FINANCIAL CONCERNS: No Concerns Private Insurance PRIMARY CARE PHYSICIAN: Yes Chava Carter MD : No IS PATIENT'S ADMISSION ASSOCIATED WITH TIA, ISCHEMIC, OR HEMORRHAGIC STROKE?: No LANGUAGE / COMMUNICATION BARRIERS: No PATIENT / SUBSTITUTE DECISION MAKER GOAL UPON TRANSITION: First Choice: Home: Family/Friend Support ANTICIPATED NEEDS, TRANSITION CHOICES OFFERED: Home: Family/Friend Support RESOURCE(S) PROVIDED: nothing needed at this time DOES PATIENT HAVE CLOTHING TO WEAR AT DISCHARGE? Yes ANTICIPATED MODE OF TRANSPORT UPON DISCHARGE: Family Car VERIFIED CORRECT PHARMACY IS ENTERED FOR DISCHARGE: Yes - Pharmacy: . [id number] [id number] CURRENT READMISSION RISK SCORE Predictive Risk Score Risk of Unplanned Readmission: 8 Please refer to readmission risk assessment flowsheet for further details. SIGNED: SARAHI Horton, senior specialist [facility] Office (): [phone] [place] (): [phone] are Planning - Xavier Paula RN - 11/03/2020 6:47 AM CDT Problem: RISK FOR DECREASED CARDIAC TISSUE PERFUSION Goal: TISSUE PERFUSION: CARDIAC Description: DEFINITION: Adequacy of blood flow through the coronary vasculature to maintain heart function. 1 = Severe deviation from normal range, 2 = Substantial deviation from normal range, 3 = Moderate deviation from normal range, 4 = Mild deviation from normal range, 5 = No deviation from normal range. Outcome: NOC Rating 4 Flowsheets (Taken 11/03/2020 0644) Initial Score: 3 Target Score: 5 Plan of care reviewed with: Patient Patient specific goal for the day: Remain free of chest pain Patient specific goal for the stay: Return to baseline Achieve goal for stay: By discharge Patient Progress: Nitro drip in place at 10 mcg/min. The patient reports no chest pain throughout the shift. linical Team - Xavier Paula RN - 11/03/2020 6:26 AM CDT [id number] Shift Summary Summary Allen Events: No acute changes this shift. Patient stated no pain throughout the night. Troponin levels are trending downward Assessment Cardiac: HR 60-70, Rhythym Normal Sinus Rhythm, BP 140-120 SBP Respiratory: Lungs sound clear, Oxygenation stable on Room Air Neurological: Oriented x4, pain rated 0/10, see MAR for PRN pain meds given. GI/: 1 BM, voids via bathroom privileges Musculoskeletal: independent activity, turned every two hours by self. Other: Nitro & Heparin gtts linical Team - Kaden Carrillo RN - 11/02/2020 8:00 PM CDT Upon Admission to room 518, skin assessment completed with Bradford Del Rosario RN. Upon skin assessment including pressure points findings include: no skin issues noted. Plan/Intervention encourage activity, monitor for skin/activity changes. Clinical Team - Mirza Dubois RN - 11/02/2020 5:15 PM CDT All time are approximate: 1715: Report received from transfering ED. 1800: Patient arrived on unit. Dr. Gan notified of patients arrival. Patient placed in gown. Patient educated on unit policy. See admission assessment. 1845: Received verbal order from Dr. Gan for a stat EKG. EKG performed by this nurse after labsdrawn. Per Dr. Bennett to start nitro drip at the lowest dose and to start heparin drip after PTT at intial dose. Unable to reach Echo department per Dr. Gan. 1900: Dr. Gan messaged about patient's diet. No new orders. 1905: SBAR bedside shift report given to Valentino RN and Bradford STEEN. Heparin drip started at initiating dose per protocol after PTT came back. All questions answered and updates given to oncoming nurses. Allcare relinquished. documented in this encounter Plan of Treatment Date Type Specialty Care Team Description 11/12/2020 Office Visit Family [facility] Chava Carter MD [address] [place], [place] [address] [phone] Name Type Priority Associated Diagnoses Date/Ti me EKG CVS STAT 11/03/2020 4:4 1 PM CDT EKG to be done 3 hours post CVS Routine 11/03/2020 8:24 PM CDT coronary intervention Name Type Priority Associated Diagnoses Order S [facility] CLINIC REFERRAL Referral Routine NSTEMI (non-ST elevated O rdered: 11/04/2020 CARDIOLOGY ONE CHART myocardial infarctio n) (HCC) documented as of this encounter Procedures Procedure Name Priority Date/Time Associated Comments Diagnosis TROPONIN I Timed Routine 11/04/2020 6:26 Results fo r this AM CDT procedure are i n the results section. TROPONIN I Timed Routine 11/04/2020 4:07 Results fo r this AM CDT procedure are i n the results section. TROPONIN I Timed Routine 11/04/2020 12:42 Results fo r this AM CDT procedure are i n the results section. TROPONIN I Timed Routine 11/03/2020 10:11 Results fo r this PM CDT procedure are i n the results section. EKG Routine 11/03/2020 8:24 PM CDT TROPONIN I Timed Routine 11/03/2020 7:16 Results fo r this PM CDT procedure are i n the results section. EKG STAT 11/03/2020 4:41 PM CDT TROPONIN I Timed Routine 11/03/2020 4:18 Results fo r this PM CDT procedure are i n the results section. COLLECT AND HOLD Routine 11/03/2020 11:16 Results for this LAVENDER (EDTA) TOP AM CDT procedur e are in TUBE the results section. TROPONIN I Timed Routine 11/03/2020 11:16 Results fo r this AM CDT procedure are i n the results section. PTT Timed Routine 11/03/2020 8:28 Results fo r this AM CDT procedure are i n the results section. TROPONIN I Timed Routine 11/03/2020 8:28 Results fo r this AM CDT procedure are i n the results section. ECHO ADULT COMPLETE SARAN 11/03/2020 7:34 Resu lts for this AM CDT procedure are i n the results section. LAB ONLY-COMPLETE Routine 11/03/2020 5:03 Result s for this BLOOD COUNT WITH AM CDT procedure a re in DIFFERENTIAL the results section. TROPONIN I Timed Routine 11/03/2020 5:03 Results fo r this AM CDT procedure are i n the results section. BASIC METABOLIC Routine 11/03/2020 5:03 Results for this PANEL AM CDT procedure are i n the results section. LAB ONLY-COMPLETE Routine 11/03/2020 5:03 Result s for this BLOOD COUNT WITH AM CDT procedure a re in DIFFERENTIAL the results section. PTT Timed Routine 11/03/2020 12:39 Results fo r this AM CDT procedure are i n the results section. TROPONIN I Timed Routine 11/03/2020 12:39 Results fo r this AM CDT procedure are i n the results section. TROPONIN I Timed Routine 11/02/2020 9:50 Results fo r this PM CDT procedure are i n the results section. EKG STAT 11/02/2020 6:54 Results for this PM CDT procedure are i n the results section. LIPID PANEL Routine 11/02/2020 6:48 Results for this PM CDT procedure are i n the results section. PTT SARAN 11/02/2020 6:48 Results for this PM CDT procedure are i n the results section. GLYCATED HEMOGLOBIN Routine 11/02/2020 6:48 Resu lts for this PM CDT procedure are i n the results section. TROPONIN I SARAN 11/02/2020 6:48 Results for this PM CDT procedure are i n the results section. BRAIN NATRIURETIC Routine 11/02/2020 6:48 Result s for this PEPTIDE PM CDT procedure are i n the results section. documented in this encounter Results TROPONIN I (11/04/2020 6:26 AM CDT) Pathologist Sig nature Troponin I 1.433 (H) 0.000 - 0.013 ng/mL [address] Specimen Blood - Blood specimen (specimen) Performing Organization Address [facility] Phon e Number [facility] [address] [place] [address], [place] [address] TROPONIN I (11/04/2020 4:07 AM CDT) Pathologist Sig nature Troponin I 1.540 (H) 0.000 - 0.013 ng/mL [place] [address] [facility] Specimen Blood - Blood specimen (specimen) Performing Organization Address [facility]/ZIP [facility] Phon e Number [facility] [address] [place] [address], [place] [address] TROPONIN I (11/04/2020 12:42 AM CDT) Pathologist Sig nature Troponin I 1.449 (H) 0.000 - 0.013 ng/mL [address] Specimen Blood - Blood specimen (specimen) Performing Organization Address [facility] Phon e Number [facility] [address] [place] [address] TROPONIN I (11/03/2020 10:11 PM CDT) Pathologist Sig nature Troponin I 1.377 (H) 0.000 - 0.013 ng/mL [facility] Specimen Blood - Blood specimen (specimen) Performing Organization Address [facility] Code Phon e Number [facility] [address] [place] [address], [place] [address] TROPONIN I (11/03/2020 7:16 PM CDT) Pathologist Sig nature Troponin I 1.332 (H) 0.000 - 0.013 ng/mL [facility] Specimen Blood - Blood specimen (specimen) Performing Organization Address [facility]/ZIP Code Phon e Number [facility] [address] [place] [address], [place] [address] TROPONIN I (11/03/2020 4:18 PM CDT) Pathologist Sig nature Troponin I 1.327 (H) 0.000 - 0.013 ng/mL [facility] Specimen Blood - Blood specimen (specimen) Performing Organization Address [facility] Code Phon e Number [facility] [address] [place] [address], [place] [address] COLLECT AND HOLD LAVENDER (EDTA) TOP TUBE (11/03/2020 11:16 AM CDT) Collect and Hold Comment: RECEIVED [facility] Specimen Status CLINIC Specimen Blood - Blood specimen (specimen) Performing Organization Address [facility] Code Phon e Number [facility] [address] [place] [address], [place] [address] TROPONIN I (11/03/2020 11:16 AM CDT) Pathologist Sig nature Troponin I 1.103 (H) 0.000 - 0.013 ng/mL [facility] Specimen Blood - Blood specimen (specimen) Performing Organization Address [facility] Code Phon e Number [facility] [address] [place] [address], [place] [address] TROPONIN I (11/03/2020 8:28 AM CDT) Pathologist Sig nature Troponin I 1.215 (H) 0.000 - 0.013 ng/mL [facility] Specimen Blood - Blood specimen (specimen) Performing Organization Address [facility]/ZIP Code Phon e Number [address] [place] [address] PTT (11/03/2020 8:28 AM CDT) Pathologist Sig nature APTT 120 (H) 24 - [address] Specimen Blood - Blood specimen (specimen) Performing Organization Address [facility] Phon e Number [address] [place] [address] ECHO ADULT COMPLETE (11/03/2020 7:34 AM CDT) Specimen Narrative Performed At This result has an attachment that is no t available. [facility] Patient: DICKSON KAUR MR#: [id number] Exam Date: 11/03/[address] [facility] [address] [place] [address] BP: 109/59 mmHg HR: 88 bpm : 1970 Exam Location: Bedside Height: 66.00 "(167.6 cm) Age: 50 year(s) Patient Room: [facility] Weight: 143 lbs.(64.86 kg) Gender: Female Patient Status: Inpatient BSA: 1.73 m2 [employer] Site Monitor: ARABELLA ESPARZA, . Reading Physician: Viry ZAMUDIO Ordering Physician: SHOBHA GAN MD Procedure Indication(s): NSTEMI Examination: TTE Complete 2D(m-mode), Complete Spectral Doppler, Color Doppler Conclusions Left Ventricle: Normal left ventricular systolic functio n. The ejection fraction is visually estimated to be 65 %. There are no left ventricular regional wall motion abnormalities. Norm al left ventricular diastolic function. Mitral Valve: Mild mitral regurgitation. Multiple mitral regurgitant jets. Right Ventricle: Normal right ventricular systolic function. Pulmonary Artery: The tricuspid jet envelope definition is inadequate for estimation of RV systolic pressure. Comparison Study Comparison Study: No previous echo was available for c omparison Findings Left Ventricle: Normal left ventricular size. Normal lef t ventricular wall thickness. Normal left ventricular systolic function. The ejection fraction is visually estimated to be 65 %. There are no left ventricular regional wall motion abnormalities. Normal left ventricular diastolic function. Left Atrium: Normal left atrial size. Aortic Valve: The aortic valve is tricuspid. Mild aort ic cuspal thickening. Normal aortic cuspal mobility. Trivial aortic regurgitation. No aortic stenosis. Aorta: The sinus of valsalva is normal in size measuring 28.0 mm. The ascending aorta is normal in size measuring 29.0 mm. Mitral Valve: Mild mitral leaflet thickening. Mild tiffanie ral regurgitation. Multiple mitral regurgitant jets. No mitral stenosis. IAS: No gross evidence of shunt flow seen; ho wever the possibility of a PFO cannot be completely ruled out. Right Ventricle: Normal right ventricular size. Normal ri ght ventricular systolic function. Normal right ventricular wall thickness. Pulmonary Artery: The tricuspid jet envelope definition is inadequate for estimation of RV systolic pressure. Pulmonary Vein: Normal pulmonary venous flow. Right Atrium: Normal right atrial size. Tricuspid Valve: Normal tricuspid valve structure. Trivia l tricuspid regurgitation. No significant tricuspid stenosis. Pulmonic Valve: Normal pulmonary valve structure. Trivia l pulmonary regurgitation. No pulmonary stenosis. IVC: Normal IVC size with normal respirophasic changes. Pericardium: No significant pericardial effusion. The re is pericardial fat. No pleural effusion. Measurements Left Ventricle Aortic Valve Label Value Normal Value Label Value Normal Value LVDd, 2D 45.8 mm LVOT Vmax 94 cm/s LVDs, 2D 29 mm AV Vmax 104 cm/s IVSd, 2D 6.9 mm LVOTd 19 mm LVPWd, 2D 7.7 mm LVOT VTI 20.2 cm FS, 2D 37 % LVOT PGmax 4 mmHg LVEDV, 2D 96 ml AV Vmean 73 cm/s LVESV, 2D 32 ml AV VTI 21.7 cm Cardiac Output 5.02 L/min AV PGmax 4 mmHg Cardiac Index 2.9 AV PGmean 2 mmHg L/min/m-sq OSMANY (Vmax) 2.6 cm-sq LVEDVI, 2D 55.5 ml/m 2 AV Vmax, Caliper 104 cm/s LVESVI, 2D 18.5 ml/m 2 OSMANY (VTI) 2.6 cm-sq Stroke Index 32.95 Obstructive Index 0.9 ml/m-sq (V max) Left Atrium Obstruction Index 0.93 Label Value Normal Value (VTI) LADs Long. 40 mm Mitral Valve LA Volume Index 21.6 ml/m-sq Label Value Normal Value Aorta MV E Vmax 100 cm/s Label Value Normal Value MV A Vmax 90 cm/s Ao Asc 29 mm MV E/A 1.11 Ao Sinus, 2D 28 mm MV E/E' lateral 9.9 Heart Rate MV E/E' septal 11.2 Label Value Normal Value MV Dec Time 193 ms Heart Rate 88 bpm MV E' septal 8.9 cm/s MV PHT 0.06 s MVA PHT 3.9 cm-sq MV E' lateral 10.1 cm/s Tricuspid Valve Label Value Isabel l Value RA Pressure 3 mmHg Pulmonic Valve Label Value Isabel l Value PV Vmax 94 cm/s PV PGmax 4 mmHg Electronically signed by KWSAI STRAUSS MD on 021 at 10:13 AM (No Signature Object) Procedure Note [employer] Results No Pull Forward - 11/03/2020 10:16 AM CDT Patient: DICKSON KAUR MR#: [id number] Exam Date: 11/03/[address] [facility] [address] [place] [address] BP: 109/59 mmHg HR: 88 bpm : 1970 Exa m Location: Bedside Height: 66.00 "(167.6 cm) Age: 50 year(s) Pat ient Room: 8 Weight: 143 lbs.(64.86 kg) Gender: Female Pat ient Status: Inpatient BSA: 1.73 m2 [employer] Site Monitor: ARABELLA JOLLEY . Reading Physician: KWASI LOPEZ MD Ordering Physician: SHOBHA THOMAS MD Procedure Indication(s): NSTEMI Examination: TTE Co mplete 2D(m-mode), Complete Spectral Doppler, Color Doppler Conclusions Left Ventricle: Normal left ventricular systolic functio n. The ejection fraction is visually estimated to be 65 %. There are no left ventricular regional wall motion abnormalities. Norm al left ventricular diastolic function. Mitral Valve: Mild mitral regurgitation. Multiple mitr al regurgitant jets. Right Ventricle: Normal right ventricular systolic functi on. Pulmonary Artery: The tricuspid jet envelope definition is inadequate for estimation of RV systolic pressure. Comparison Study Comparison Study: No previous echo was a vailable for comparison Findings Left Ventricle: Normal left ventricular size. Normal lef t ventricular wall thickness. Normal left ventricular systolic function. The ejection fraction is visually estimated to be 65 %. There are no left ventricular regional wall motion abnormalities. Normal left ventricular diastolic function. Left Atrium: Normal left atrial size. Aortic Valve: The aortic valve is tricuspid. Mild aort ic cuspal thickening. Normal aortic cuspal mobility. Trivial aortic regurgitation. No aortic stenosis. Aorta: The sinus of valsalva is normal in size measuring 28.0 mm. The ascending aorta is normal in size measuring 29.0 mm. Mitral Valve: Mild mitral leaflet thickening. Mild tiffanie ral regurgitation. Multiple mitral regurgitant jets. No mitral stenosis. IAS: No gross evidence of shunt flow seen; ho wever the possibility of a PFO cannot be completely ruled out. Right Ventricle: Normal right ventricular size. Normal ri ght ventricular systolic function. Normal right ventricular wall thickness. Pulmonary Artery: The tricuspid jet envelope definition is inadequate for estimation of RV systolic pressure. Pulmonary Vein: Normal pulmonary venous flow. Right Atrium: Normal right atrial size. Tricuspid Valve: Normal tricuspid valve structure. Trivia l tricuspid regurgitation. No significant tricuspid stenosis. Pulmonic Valve: Normal pulmonary valve structure. Trivia l pulmonary regurgitation. No pulmonary stenosis. IVC: Normal IVC size with normal respirophasi c changes. Pericardium: No significant pericardial effusion. The re is pericardial fat. No pleural effusion. Measurements Left Ventricle Aortic Valve Label Value Norm al Value Label Value Normal Value LVDd, 2D 45.8 mm LVOT Vmax 94 cm/s LVDs, 2D 29 mm AV Vmax 104 cm/s IVSd, 2D 6.9 mm LVOTd 19 mm LVPWd, 2D 7.7 mm LVOT VTI 20.2 cm FS, 2D 37 % LVOT PGmax 4 mmHg LVEDV, 2D 96 ml AV Vmean 73 cm/s LVESV, 2D 32 ml AV VTI 21.7 cm Cardiac Output 5.02 L/min AV PGmax 4 mmHg Cardiac Index 2.9 AV PGmean 2 mmHg L/min/m-sq OSMANY (Vmax) 2.6 cm-sq LVEDVI, 2D 55.5 ml/m2 AV Vmax, Caliper 104 cm/s LVESVI, 2D 18.5 ml/m2 OSMANY (VTI) 2.6 cm-sq Stroke Index 32.95 Obstructive Index 0.9 ml/m-sq (Vm ax) Left Atrium Obstruction Index 0.93 Label Value Norm al Value (VTI) LADs Long. 40 mm Mitral Valve LA Volume Index 21.6 ml/m-sq Label Value Normal Value Aorta MV E Vmax 100 cm/s Label Value Norm al Value MV A Vmax 90 cm/s Ao Asc 29 mm MV E/A 1.11 Ao Sinus, 2D 28 mm MV E/E' lateral 9.9 Heart Rate MV E/E' septal 11.2 Label Value Norm al Value MV Dec Time 193 ms Heart Rate 88 bpm MV E' septal 8.9 cm/s MV PHT 0.06 s MVA PHT 3.9 cm-sq MV E' lateral 10.1 cm/s Tricuspid Valve Label Value Norm al Value RA Pressure 3 mmHg Pulmonic Valve Label Value Norm al Value PV Vmax 94 cm/s PV PGmax 4 mmHg (No Signature Object) Performing Organization Address City/State/ZIP Code Phon e Number [facility] [place], [place] LAB ONLY-COMPLETE BLOOD COUNT WITH DIFFERENTIAL (11/03/2020 5:03 AM CDT) Pathologist Sig nature WBC 11.0 4.0 - 11.0 K/uL [address] RBC 4.28 3.80 - 5.[address] M/uL Hemoglobin 12.3 11.5 - 15.[address] g/dL Hematocrit 36.8 35.0 - 45.0 % [address] MCV 86.0 80.0 - 98.[address] MCH 28.7 25.5 - 34.[address] MCHC 33.4 31.5 - 36.[address] g/dL RDW-CV 13.0 11.5 - 15.5 % [address] RDW-SD 40.7 35.5 - 50.[address] Platelet Count 247 140 - 400 K/uL [address] MPV 9.1 8.5 - 12.[address] Seg Neut Absolute 6.3 1.8 - 8.0 K/uL [place] [address] [facility] Lymphocytes Absolute 3.4 0.8 - 4.1 K/uL [place] [address] [facility] C Monocytes Absolute 0.9 0.0 - 1.0 K/uL [address] Eosinophils Absolute 0.2 0.0 - 0.7 K/uL [place] [address] [facility] Basophil Absolute 0.1 0.0 - 0.2 K/uL [address] Immature Granulocyte 0.07 (H) 0.00 - 0.06 [place] [address] [facility] Absolute K/uL Neutrophils Abs. 6,300 /uL [place] [address] [facility] (Segs and Bands) Neutrophils Percent 57.3 % [address] Lymphocytes Percent 31.3 % [address] Monocytes Percent 8.3 % [address] Immature Granulocyte 0.6 % [place] [address] [facility] Percent Eosinophils Percent 1.8 % [place] [address] [facility] Basophil Percent 0.7 % [place] [address] [facility] Nucleated RBC 0 /[address] Specimen Blood - Blood specimen (specimen) Performing Organization Address [facility] Phon e Number [address] [address] TROPONIN I (11/03/2020 5:03 AM CDT) Pathologist Sig [facility] Troponin I 1.527 (H) 0.000 - 0.013 ng/mL [address] Specimen Blood - Blood specimen (specimen) Performing Organization Address [facility] Phon e Number [address] [address] BASIC METABOLIC PANEL (11/03/2020 5:03 AM CDT) Pathologist Sig [facility] Glucose 89 70 - 100 mg/dL [address] BUN 7 6 - 22 mg/dL [address] Creatinine 0.71 0.60 - 1.[address] mg/dL BUN/Creatinine Ratio 9.9 (L) 10.0 - 25.[address] Sodium 138 135 - 145 meq/L [place] [address] [facility] Potassium 3.8 3.5 - 5.3 meq/L [address] Chloride 108 99 - 110 meq/L [address] CO2 21 20 - 29 meq/L [address] Anion Gap with K 13 6 - 20 meq/L [address] Calcium 8.5 8.5 - 10.5 mg/dL [address] Age [address] eGFR Non- 87 >=[address] Ghanaian mL/min/1.73m2 eGFR >90 >=[address] mL/min/1.73m2 Specimen Blood - Blood specimen (specimen) Performing Organization Address [facility] Phon e Number [address] [place] [id number] TROPONIN I (11/03/2020 12:39 AM CDT) Pathologist Sig nature Troponin I 1.874 (H) 0.000 - 0.013 ng/mL [address] Specimen Blood - Blood specimen (specimen) Performing Organization Address [facility] Phon e Number [address] [address] PTT (11/03/2020 12:39 AM CDT) Pathologist Sig nature APTT 64 (H) 24 - [address] Specimen Blood - Blood specimen (specimen) Performing Organization Address [facility] Phon e Number [address] [place] [address] TROPONIN I (11/02/2020 9:50 PM CDT) Pathologist Sig nature Troponin I 2.080 (H) 0.000 - 0.013 ng/mL [address] Specimen Blood - Blood specimen (specimen) Performing Organization Address [facility] Phon e Number [address] [address] EKG (11/02/2020 6:54 PM CDT) Pathologist Sig nature EKG [employer] Normal sinus rhythm Normal ECG No previous ECGs available Ventricular Rate: 71 BPM Atrial Rate: 71 BPM P-R Interval: 116 ms QRS Duration: 88 ms Q-T Interval: 436 ms QTc Calculation(Bazett): 473 ms Calculated P [place]: 66 degrees Calculated R [place]: 45 degrees Calculated T [place]: 63 degrees Specimen Narrative Performed At This result has an attachment that is no t available. Performing Organization Address [facility] Phon e Number [employer] GLYCATED HEMOGLOBIN (11/02/2020 6:48 PM CDT) Pathologist Sig nature Hgb A1C 5.2 <5.7 % [facility] Estimated Average 103 mg/dL [facility] Glucose Specimen Blood - Blood specimen (specimen) Narrative Performed At ADA Interpretive Guidelines [facility] When Using HbA1c for Diagnosis Prediabetes 5.7 - 6.4% Diabetes >= 6.5% When Using HbA1c for Monitoring a Person Known to Have Diabetes, < 7% is a reasonable goal for many nonpregna nt adults, < 7.5% should be considered in children and adolescents (<19 years) with type 1 diab etes. ADA Standards of Medical Care in Diabete s - 2019 Performing Organization Address City/[facility]/ZIP Code Phon e Number [facility] [address] [facility] [place] [id number] LIPID PANEL (11/02/2020 6:48 PM CDT) Pathologist Sig [facility] Cholesterol 233 (H) 100 - 200 mg/dL [facility] Triglyceride 94 50 - 150 mg/dL [facility] HDL 74 40 - 80 mg/dL [facility] LDL 140 (H) 0 - 129 mg/dL [facility] Specimen Blood - Blood specimen (specimen) Performing Organization Address [facility] Phon e Number [facility] [address] [place] [address] BRAIN NATRIURETIC PEPTIDE (11/02/2020 6:48 PM CDT) Pathologist Sig nature BNP 130 (H) 0 - 100 pg/mL [address] Specimen Blood - Blood specimen (specimen) Performing Organization Address City/[facility]/ZIP [facility] Phon e Number [place] [facility] [address] [place] [address] [place] [address] TROPONIN I (11/02/2020 6:48 PM CDT) Pathologist Sig nature Troponin I 2.242 (H) 0.000 - 0.013 ng/mL [address] Specimen Blood - Blood specimen (specimen) Performing Organization Address [facility]/ZIP [facility] Phon e Number [place] [facility] [address] [place] [address] PTT (11/02/2020 6:48 PM CDT) Pathologist Sig nature APTT 74 (H) 24 - 35 secs [facility] Specimen Blood - Blood specimen (specimen) Performing Organization Address City/State/ZIP Code Phon e Number [facility] [address] [place] [address] documented in this encounter Visit Diagnoses Diagnosis NSTEMI (non-ST elevated myocardial infar ction) ([facility]) - Primary Acute myocardial infarction, subendocard ial infarction, episode of care unspecified Stented coronary artery Postsurgical percutaneous transluminal c oronary angioplasty status documented in this encounter Discharge Diagnoses Not on filedocumented in this encounter Administered Medications Medication Order MAR Action Action Date Dose Rate Site acetaminophen (TYLENOL) tablet Given 11/03/2020 6:37 PM CDT 650 mg 650 mg 650 mg, Oral, Every four hours prn, Starting on Mon11/02/20 at 1813, Until Discontinued, mild pain, fever, for pain scale 3 or less or if patient prefers this medication for pain, Adult patients: Total dose of acetaminophen from all acetaminophen containing products should not exceed 4 grams (4000 mg) per day. Pediatric Patients 0 - 3 months: Maximum of 60 mg/kg/24 hours of acetaminophen. Pediatric Patients older than 3 months: Maximum of 75 mg/kg/24 hours of acetaminophen (Never exceeding 4 grams/day). aspirin enteric coated tablet 81 mg Given 11/04/2020 8:51 AM CDT 81 mg 81 mg, Oral, Daily, First dose on Mon11/04/20 at 0900, Until Discontinued, Post-Procedure (Cath), Tablet should be swallowed whole and not be divided, crushed or chewed. atorvaSTATin (LIPITOR) tablet 40 mg Given 11/03/2020 8:43 PM CDT 40 mg 40 mg, Oral, Bedtime, First dose on Mon11/02/20 at 2100, Until Discontinued Given 11/02/2020 8:04 PM CDT 40 mg bisacodyl (DULCOLAX) suppository 10 mg 10 mg, Rectal, One time a day prn, Starting on 10/09 at 1841, Until Discontinued, constipation, Use SECOND for constipatio n. If patient cannot take oral medications, use first for constipation. docusate sodium (THEREVAC-SB MINI;ENEMEE Z MINI) 283 MG enema 1 enema 1 enema, Rectal, One time a day prn, Starting on Mon at 1841, Until Discontinued, constipation, Use THIRD for constipation - if no BM 8 hours after dulcolax suppository. If patient cannot take oral medi cations, use second for constipation. hydrALAZINE (APRESOLINE) injection solut ion 10 mg 10 mg, IV, Every six hours prn, Starting on Mon 1 at 1519, Until Discontinued, specified parameter, to ke ep SBP less than 150 mmHg, 0.5 mL, Repeat in 20 minutes if needed. If not successful after two d oses, contact the interventional cardiology team. HYDROcodone-acetaminophen (NORCO) 5-325 mg tablet 1 tablet 1 tablet, Oral, Every four hours prn, Starting on Mon11/02/20 at 1813, Until Discontinued, moderate pain, for pain scale 4 to 6 or pain not relieved by medications for pain scale 1 - 3 metoclopramide (REGLAN) inj soln 5 mg 5 mg, IV, Every eight hours prn, Starting on Mon at 1841, Until Discontinued, nausea, vomiting, 1 mL, Use THIRD for na usea / vomiting. If ineffective after 30 minutes and ondanse diya oral and IV given, call provider for alternative. If preference is to further dilute for IV administration: First draw up patient-specific dose, then dilute to 10 mL with 0. 9% sodium chloride. metoprolol succinate (TOPROL XL) SR tablet Given 11/04/2020 8:5 1 AM CDT 50 mg (24 hr) 50 mg 50 mg, Oral, Daily, First dose on Mon11/04/20 at 0900, Until Discontinued, Tablet may be broken in half, but should not be crushed or chewed. Hold for SBP less than 100 Hold for HR less than 60 morphine preservative free injection martha ution (conc: 2 mg/mL) 2 mg 2 mg, IV, Every two hours prn, Starting on Mon11/02/20 at 1813, Until Discontinued, severe pain, 1 mL, for pain Scale 7 or g reater or pain not relieved by medications for Pain Scale 4 to 6 nitroglycerin (NITROSTAT) sublingual tab let 0.4 mg 0.4 mg, Sublingual, Every five minutes p rn, Starting on Mon11/03/20 at 1519, Until Discontinued, chest pain, At onset of ch est pain, dissolve one tablet under tongue. May repeat every 5 minutes for 3 doses. Do not crush o r chew. ondansetron (ZOFRAN ODT) dispersible tab let 4 mg 4 mg, Oral, Four times a day prn, Starting on 11/02 at 1841, Until Discontinued, nausea, vomiting, Use FIRS T for nausea / vomiting. If ineffective after 30 minutes use ondansetron IV ondansetron (ZOFRAN) injection solution 4 mg 4 mg, IV, Four times a day prn, Starting on Mon 1 at 1841, Until Discontinued, nausea, vomiting, 2 mL, Use SECOND for n ausea / vomiting. If ineffective after 30 minutes and ondanse diya oral given, use metoclopramide IV If preference is to further dilute for IV administration: First draw up patient-specific dose, then dilute to 10 mL with 0.9% sodium chloride. senna-docusate sodium (SENOKOT-S;PERICOL JEWELL) tablet 2 tablet 2 tablet, Oral, Two times a day prn, Starting on Mon at 1841, Until Discontinued, constipation, Use FIRST fo r constipation unless patient cannot take oral medications. sertraline (ZOLOFT) tablet 150 mg Given 11/04/2020 8:51 AM CDT 150 mg 150 mg, Oral, Daily, First dose on Mon11/03/20 at 0900, Until Discontinued Given 11/03/2020 9:26 AM CDT 150 mg sodium chloride 0.9% flush (adult) 10 mL Given 11/04/2020 8:51 AM CDT 10 mL 10 mL, IV, Two times a day and prn, First dose on Mon11/02/20 at 2100, Until Discontinued, 10 mL, Flush PIV line as scheduled and as often as necessary before and after meds. Use a push / pause technique when flushing to create turbulence. Given 11/03/2020 8:44 PM CDT 10 mL Given 11/03/2020 9:30 AM CDT 10 mL ticagrelor (BRILINTA) tablet 90 mg Given 11/04/2020 4:28 AM CDT 90 mg 90 mg, Oral, Two times a day, 730 doses, First dose on Mon11/04/20 at 0430, Last dose on Mon11/03/21 at 1800, Post-Procedure (Cath), If medication is crushed, must be mixed with water for administration. Medication Order MAR Action Action Date Dose Rate Site aspirin chewable tablet 243 mg Given 11/03/2020 12:57 PM CDT 243 mg 243 mg, Oral, One time, 1 dose, On Mon11/03/20 at 1220, Prep Orders (Cath) if inpatient - floor RN to release, Patient to receive 325 mg aspirin prior to procedure If patient currently taking aspirin at home and has taken their dose today prior to procedure: administer aspirin dosage so that total amount prior to procedure equals 325 mg aspirin chewable tablet 81 mg Given 11/03/2020 9:26 AM CDT 81 mg 81 mg, Oral, Daily, First dose on Mon11/03/20 at 0900, Until Discontinued fentaNYL 100 mcg/2 mL preservative free Given 11/03/2020 2:56 P M CDT 50 mcg injection solution 25-300 mcg 25-300 mcg, IV, PRN per parameter, Starting on Mon11/03/20 at 1216, Until Mon11/03/20 at 1606, other (Specify), sedation for cardiac catheterization, 6 mL, Pre-Procedure (Cath), procedural area to release, For sedation under direction provider privileged to perform sedation. Do not give on the floor. hEParin (50 units/mL) in Rate Verify 11/03/2020 8:56 AM 17 Units/ kg/hr 22.1 mL/hr D5W premixed IV solution CDT (STANDARD-weight based) 0-50 Units/kg/hr 65 kg (0-65 mL/hr), IV, at 0-65 mL/hr, Titrate, Starting on Mon11/02/20 at 1915, Until Mon11/03/20 at 1533, 500 mL, Start initial infusion at 15 units/kg/hr. Notify physician if initial infusion exceeds 1,500 units/hr. Adjust heparin infusion based on sliding scale: * aPTT less than 60 sec ------ Give 70 units/kg IV bolus and add 4 units/kg/hr to current rate * aPTT 60-69.9 sec Give 35 units/kg IV bolus and add 2 units/kg/hr to current rate * aPTT 70-120.9 sec No change (therapeutic) * aPTT 121-135.9 sec Subtract 2 units/kg/hr from current rate * aPTT 136-149.9 sec --------- Hold heparin for 1 hour and subtract 3 units/kg/hr from current rate * aPTT 150 sec or greater - Redraw STAT aPTT and hold heparin. Draw hourly aPTT using routine specified time until less than 150 sec, then restart heparin infusion at 3 units/kg/hr less than the previous rate, give NO BOLUS and resume every 6 hour aPTT. AFTER PROCEDURE: When restarting infusion after it's been held for a procedure, restart infusion at "starting" dose of 15 units/kg/hr and follow titration orders. IF infusion was running at less than 15 units/kg/hr prior to procedure, restart at that rate and follow titration orders. Rate Change 11/03/2020 2:03 AM CDT 17 Units/kg/hr 22.1 mL/hr New Bag 11/02/2020 7:12 PM CDT 15 Units/kg/hr 19.5 mL/hr heparin (porcine) (5000 units/1 mL) IV Given 1 2:00 AM CDT 2,300 Units dose 2,300 Units 2,300 Units (rounded from 2,275 Units = 35 Units/kg 65 kg), IV, PRN per parameter, Starting on Mon11/02/20 at 1812, Until Mon11/03/20 at 1533, other (Specify), * aPTT 60 to 69.9 seconds - Give 35 units/kg IV bolus and add 2 units/kg/hr to current rate of infusion, 1 mL, Supplemental bolus doses based on aPTT: * aPTT less than 60 seconds - Give 70 units/kg IV bolus and add 4 units/kg/hr to current rate of infusion. * aPTT 60 to 69.9 seconds - Give 35 units/kg IV bolus and add 2 units/kg/hr to current rate of infusion. Round to the nearest 100 units up to a maximum bolus of heparin 7500 units. heparin (porcine) injection solution Given 11/03/2020 3:05 PM C DT 2,000 Units 0-12,000 Units 0-12,000 Units, IV, Administer in Cardiac Junior Brand Manager, 1 dose, On Mon11/03/20 at 1510, 12 mL, Under the direction of the provider in CCL. Do not give on the floor. iohexol (OMNIPAQUE) 350 mg/mL solution 120 Given 11/03/2020 3:26 PM CDT 120 mL mL 120 mL, Intra-arterial, One time, 1 dose, On Mon11/03/20 at 1530, 150 mL lidocaine PF (XYLOCAINE-MPF) 1 % preservative Given 2:56 PM CDT 1 mL free injection solution 0-40 mL 0-40 mL, Subcutaneous, Administer in Cardiac Junior Brand Manager, 1 dose, On Mon11/03/20 at 1300, 40 mL, Given by provider in CCL. Do not give on the floor. metoprolol tartrate (LOPRESSOR) tablet 2 5 mg Given 11/03/2020 8:43 PM CDT 25 mg 25 mg, Oral, Two times a day, First dose on Mon11/02/20 at 2100, Until Discontinued, Hold for SBP less than 100 Hold for HR less than 55 Given 11/03/2020 9:26 AM CDT 25 mg Given 11/02/2020 8:04 PM CDT 25 mg midazolam (VERSED) injection solution 0.5-10 Given 3:10 PM CDT 1 mg mg 0.5-10 mg, IV, PRN per parameter, Starting on Mon11/03/20 at 1216, Until Mon11/03/20 at 1606, other (Specify), sedation for cardiac catheterization, 10 mL, Pre-Procedure (Cath), procedural area to release, For sedation under direction provider privileged to perform sedation Do not give on the floor Given 11/03/2020 2:56 PM CDT 1 mg nitroglycerin (100 mcg/mL) in NS Given 11/03/2020 3:10 PM CDT 4 mL 0-6 mL (0-600 mcg), Intra-arterial, Administer in Cardiac Junior Brand Manager, 1 dose, On Mon11/03/20 at 1515, 10 mL, Given by provider in CCL. Do not give on the floor. nitroglycerin (400 mcg/mL) in New Bag 11/02/2020 6:57 PM CDT 10 mcg/min 1.5 mL/hr D5W IV solution (premix) 5-100 mcg/min (0.75-15 mL/hr, rounded to 0.8-15 mL/hr), IV, at 0.8-15 mL/hr, Titrate, Starting on Mon11/02/20 at 1915, Until Mon11/03/20 at 1533, 250 mL, For ADULT patients: Initiate infusion at 10 mcg/minute. For angina: Increase infusion by 5 mcg/minute every 5 minutes to 20 mcg/minute; if angina pain is not controlled at 20 mcg/minute, increase by 10 mcg/minute every 5 minutes until angina pain is controlled up to a max dose of 100 mcg/min. Notify physician if angina pain is not controlled with an infusion rate of 100 mcg/min. Do not increase the infusion rate if SBP less than 90 or MAP less than 60 mmHg. When discontinuing or weaning, decrease the infusion by 10 mcg/min every 15 minutes as tolerated to avoid hypertension and angina. Document titrations in One Chart (MAR or I&O Flowsheet medication group). sodium chloride 0.9% IV solution New Bag 11/03/2020 3:50 PM CDT 125 mL/hr IV, at 125 mL/hr, Continuous, Starting on Mon11/03/20 at 1620, Until Mon11/03/20 at 2219, 1,000 mL, Post-Procedure (Cath) ticagrelor (BRILINTA) tablet 0-180 mg Given 11/03/2020 3:22 PM CDT 180 mg 0-180 mg, Oral, Administer in Cardiac Junior Brand Manager, 1 dose, On Mon11/03/20 at 1520, Under the direction of the provider in CCL. Do not give on the floor. verapamil-hEParin in normal saline (radial Given 11/03/2020 2:5 7 PM CDT cocktail) Intra-arterial, Administer in Cardiac Junior Brand Manager, 1 dose, On Mon11/03/20 at 1300, 10 mL, Under the direction of the provider in CCL. Do not give on the floor. documented in this encounter Active and Recently Administered Medications Times are shown in CDT. Medication Order 11/02/2020 11/03/2020 11/04/2020 aspirin chewable tablet 243 mg (COMPLETED) 1257 (Given - Provider: Annamarie Johnson RN) 243 mg, Oral, One time, 1 dose, On Mon at 1220, Prep Orders (Cath) if inpatient - floor RN to release, Patient to receive 325 mg aspirin prior to procedure If patient currently taking aspirin at home and has taken their dose today p rior to procedure: administer aspirin dosage so that total amount prior to procedure equals 325 mg aspirin chewable tablet 81 mg (CANCELED) 925 (Given - Provider: Annamarie Johnson RN) 81 mg, Oral, Daily, First dose on Mon11/03/20 at 0900, Until Dis continued aspirin enteric coated tablet 81 mg(Linked Group 1) 850 (Given - Provider: Annamarie Johnson RN) 81 mg, Oral, Daily, First dose on Mon at 0900, Until Discontinued, Post- Procedure (Cath), Tablet should be swallowed whole and not be divided, crushed or chewed. atorvaSTATin (LIPITOR) tablet 40 mg 2003 (Given - Prov ider: Xavier Paula RN) 2042 (Given - Provider: Anupama Deluca RN) 2099 (Due) 40 mg, Oral, Bedtime, First dose on Mon11/02/20 at 2100, Until D iscontinued heparin (porcine) injection solution 0-12,000 Units (COMPLET ED) 1505 (Given - Provider: Viviana Tellez RN) 0-12,000 Units, IV, Administer in Cardia c Junior Brand Manager, 1 dose, On Mon11/03/20 at 1510, 12 mL, Under the direction of the provider in CCL. Do not give on the floor. iohexol (OMNIPAQUE) 350 mg/mL solution 120 mL (COMPLETED) 1526 (Given - Provider: Kanchan Dior MD) 120 mL, Intra-arterial, One time, 1 dose, On Mon11/03/20 at 1530 , 150 mL lidocaine PF (XYLOCAINE-MPF) 1 % preserv ative free injection solution 0-40 mL (COMPLETED) 1456 (Given - Provider: Kanchan Dior MD) 0-40 mL, Subcutaneous, Administer in Car diac Junior Brand Manager, 1 dose, On Mon11/03/20 at 1300, 40 mL, Given by provider in CCL. Do not give on the floor. metoprolol succinate (TOPROL XL) SR tablet (24 hr) 50 mg 850 (Given - Provider: Annamarie Johnson RN) 50 mg, Oral, Daily, First dose on Mon at 0900, Until Discontinued, Tablet may be broken in half, but should not be crushed or chewed. Hold for SBP less than 100 Hold for HR less than 60 metoprolol tartrate (LOPRESSOR) tablet 25 mg (CANCELED ) 2003 (Given - Provider: Xavier Paula RN) 925 (Given - Provider: Melinda Waterman)2042 (Given - Provider: Anupama Deluca, ENIO) 25 mg, Oral, Two times a day, First dose on Mon11/02/20 at 2100, Until Discontinued, Hold for SBP less than 100 Hold for HR less than 55 nitroglycerin (100 mcg/mL) in NS (COMPLETED) 151 (Given - Provider: Kanchan iDor MD) 0-6 mL (0-600 mcg), Intra-arterial, Admi nister in Cardiac Junior Brand Manager, 1 dose, On Mon11/03/20 at 1515, 10 mL, Given by provider in CCL. Do not give on the floor. sertraline (ZOLOFT) tablet 150 mg 925 (Given - Provider: Annamarie Johnson RN) 850 (Given - Provider: Annamarie Johnson RN) 150 mg, Oral, Daily, First dose on Mon11/03/20 at 0900, Until Di scontinued sodium chloride 0.9% flush (adult) 10 mL 2004 (Given - Provider: Xavier Paula RN) 929 (Given - Provider: Melinda Waterman)2043 (Given - Provider: Anupama Deluca, ENIO) 850 (Given - Provider: Melinda Waterman)2099 (Due) 10 mL, IV, Two times a day and prn, Firs t dose on Mon11/02/20 at 2100, Until Discontinued, 10 mL, Flush PIV line as scheduled and as often as necessary before and after meds. Use a push / pause technique when flushing to create turbulence. ticagrelor (BRILINTA) tablet 0-180 mg (COMPLETED) 1522 (Given - Provider: Viviana Tellez, ENIO) 0-180 mg, Oral, Administer in Cardiac Ca th Lab, 1 dose, On Mon11/03/20 at 1520, Under the direction of the provider in CCL. Do not give on the floor. ticagrelor (BRILINTA) tablet 90 mg 0428 (Given - Provider: Anupama Deluca, ENIO)1800 (Due) 90 mg, Oral, Two times a day, 730 doses, First dose on Mon11/04/20 at 0430, Last dose on Mon11/03/21 at 1800, Post-Procedure (Cath), If medication is crushed, must be mixed with water for administration. verapamil-hEParin in normal saline (radial cocktail) (COMPLE SHERIDAN) 1457 (Given - Provider: Kanchan Dior MD) Intra-arterial, Administer in Cardiac Ca th Lab, 1 dose, On Mon11/03/20 at 1300, 10 mL, Under the direction of the provider in CCL. Do not give on the floor. Medication Order 11/02/2020 11/03/2020 11/04/2020 hEParin (50 units/mL) in D5W premixed IV solution (STANDARD-weight based) (CANCELED) 1911 (New Bag - Provider: Mirza Dubois, ENIO) 0203 (Rat e Change - Provider: Kaden Carrillo RN)0856 (Rate Verify - Provider: Annamarie Johnson, ENIO)1541 (Stopped - Provider: Annamarie Johnson RN) 0-50 Units/kg/hr 65 kg (0-65 mL/hr), IV, at 0-65 mL/hr, Titrate, Starting on Mon11/02/20 at 1915, Until Mon11/03/20 at 1533, 500 mL, Start initial infusion at 15 units/kg/hr. Notify physician if init ial infusion exceeds 1,500 units/hr. Ad just heparin infusion based on sliding scale: * aPTT less than 60 sec ------ Give 70 units/kg IV bolus and add 4 units/kg/hr to current rate * aPTT 60-69.9 sec - Give 35 units/kg IV bolus and add 2 units/kg/hr to current rate * aPTT 70-120.9 sec No change (therapeutic) * aPTT 121-135.9 sec Subtract 2 units/kg/hr from current r ate * aPTT 136-149.9 sec --------- Hold heparin for 1 hour and subtract 3 units/kg/hr from current rate * aPTT 150 sec or greater - Redraw STAT aPTT and hold heparin. Draw hourly aPTT using routine spe cified time until less than 150 sec, the n restart heparin infusion at 3 units/kg/hr less than the previous rate, give NO BOLUS and resume every 6 hour aPTT. AFTER PROCEDURE: When restarting infusion af ter it's been held for a procedure, rest art infusion at "starting" dose of 15 units/kg/hr and follow titration orders. IF infusion was running at less than 15 units/kg/hr prior to procedure, restart at that rate and follow titration orders. nitroglycerin (400 mcg/mL) in D5W IV solution (premix) (CANCELED) 1857 (New Bag - Provider: Mirza Dubois RN) 1541 (Stopped - Provider: Annamarie Johnson RN) 5-100 mcg/min (0.75-15 mL/hr, rounded to 0.8-15 mL/hr), IV, at 0.8-15 mL/hr, Titrate, Starting on Mon11/02/20 at 1915, Until Mon11/03/20 at 1533, 250 mL, For ADULT patients: Initiate infusion at 10 mcg /minute. For angina: Increase infusion by 5 mcg/minute every 5 minutes to 20 mcg/minute; if angina pain is not controlled at 20 mcg/minute, increase by 10 mcg/minute every 5 minutes until angina pain i s controlled up to a max dose of 100 mcg /min. Notify physician if angina pain is not controlled with an infusion rate of 100 mcg/min. Do not increase the infusion rate if SBP less than 90 or MAP less than 60 mmHg. When discontinuing or weaning, decrease the infusion by 10 mcg/min every 15 minutes as tolerated to avoid hypertension and angina. Document titrations in One Chart (MAR or I&O Flowsheet medication group). sodium chloride 0.9% IV solution () 1550 (New Bag - Provider: Annamarie Johnson RN) IV, at 125 mL/hr, Continuous, Starting o n Mon11/03/20 at 1620, Until Mon11/03/20 at 2219, 1,000 mL, Post-Procedure (Cath) Medication Order 11/02/2020 11/03/2020 11/04/2020 acetaminophen (TYLENOL) tablet 650 mg 18 37 (Given - Provider: Annamarie Johnson RN) 650 mg, Oral, Every four hours prn, Star ting on Mon11/02/20 at 1813, Until Discontinued, mild pain, fever, for pain scale 3 or less or if patient prefers this medication for pain, Adult patients: Total dose of acetaminophen from all acetamino phen containing products should not exceed 4 grams (4000 mg) per day. Pediatric Patients 0 - 3 months: Maximum of 60 mg/kg/24 hours of acetaminophen. Pediatric P atients older than 3 months: Maximum of 75 mg/kg/24 hours of acetaminophen (Never exceeding 4 grams/day). ALPRAZolam (XANAX) tablet 0.5 mg 0.5 mg, Oral, One time a day prn, Starti ng on Mon11/02/20 at 1834, Until Discontinued, anxiety bisacodyl (DULCOLAX) suppository 10 mg(Linked Group 2) 10 mg, Rectal, One time a day prn, Start ing on Mon11/02/20 at 1841, Until Discontinued, constipation, Use SECOND for constipation. If patient cannot take oral medications, use first for constipation. calcium carbonate (TUMS) chewable tablet 1,000 mg 1,000 mg, Oral, Every four hours prn, St arting on Mon11/02/20 at 1841, Until Discontinued, other (Specify), acid reflux, Use FIRST for acid reflux. If ineffective after 60 minutes, may proceed to next choice option or, if no other options, contact provider. docusate sodium (THEREVAC-SB MINI;ENEMEE Z MINI) 283 MG enema 1 enema(Linked Group 2) 1 enema, Rectal, One time a day prn, Sta rting on Mon11/02/20 at 1841, Until Discontinued, constipation, Use THIRD for constipation - if no BM 8 hours after dulcolax suppository. If patient cannot take oral medications, use second for constipation. fentaNYL 100 mcg/2 mL preservative free injection solution 25-300 mcg (CANCELED) 1456 (Given - Provider: Viviana powers, RN) 25-300 mcg, IV, PRN per parameter, Start ing on Mon11/03/20 at 1216, Until Mon11/03/20 at 1606, other (Specify), sedation for cardiac catheterization, 6 mL, Pre-Procedure (Cath), procedural area to [facility], For sedation under direction provide r privileged to perform sedation. Do not give on the floor. heparin (porcine) (5000 units/1 mL) IV dose 2,300 Units (CAN CELED) 0200 (Given - Provider: Kaden Carrillo RN) 2,300 Units (rounded from 2,275 Units = 35 Units/kg 65 kg), IV, PRN per parameter, Starting on Mon11/02/20 at 1812, Until Mon11/03/20 at 1533, other (Specify), * aPTT 60 to 69.9 seconds - Give 35 uni ts/kg IV bolus and add 2 units/kg/hr to current rate of infusion, 1 mL, Supplemental bolus doses based on aPTT: * aPTT less than 60 seconds - Give 70 units/kg IV bolus and add 4 units/kg/hr to current rate of infusion. * aPTT 60 to 69.9 sec onds - Give 35 units/kg IV bolus and add 2 units/kg/hr to current rate of infusion. Round to the nearest 100 units up to a maximum bolus of heparin 7500 units. hydrALAZINE (APRESOLINE) injection solution 10 mg 10 mg, IV, Every six hours prn, Starting on Mon11/03/20 at 1519, Until Discontinued, specified parameter, to keep SBP less than 150 mmHg, 0.5 mL, Repeat in 20 minutes if needed. If not successful after two doses, contact the interventional cardiology team. HYDROcodone-acetaminophen (NORCO) 5-325 mg tablet 1 tablet 1 tablet, Oral, Every four hours prn, St arting on Mon11/02/20 at 1813, Until Discontinued, moderate pain, for pain scale 4 to 6 or pain not relieved by medications for pain scale 1 - 3 melatonin tablet 3 mg 3 mg, Oral, Bedtime prn, Starting on Mon11/02/20 at 1841, Until Discontinued, other (Specify), insomnia, Use FIRST for insomnia. If inadequate response in 60 minutes, may proceed to next choice option or, if no other options, contact provider. metoclopramide (REGLAN) inj soln 5 mg(Linked Group 3) 5 mg, IV, Every eight hours prn, Startin g on Mon11/02/20 at 1841, Until Discontinued, nausea, vomiting, 1 mL, Use THIRD for nausea / vomiting. If ineffective after 30 minutes and ondansetron oral and I V given, call provider for alternative. If preference is to further dilute for IV administration: First draw up patient-specific dose, then dilute to 10 mL with 0.9% sodium chloride. midazolam (VERSED) injection solution 0.5-10 mg (CANCELED) 1456 (Given - Provider: Viviana Tellez, RN)1510 (Given - Provider: Viviana Tellez, RN) 0.5-10 mg, IV, PRN per parameter, Starti ng on Mon11/03/20 at 1216, Until Mon11/03/20 at 1606, other (Specify), sedation for cardiac catheterization, 10 mL, Pre-Procedure (Cath), procedural area to [facility], For sedation under direction provide r privileged to perform sedation Do not give on the floor morphine preservative free injection solution (conc: 2 mg/mL) 2 mg 2 mg, IV, Every two hours prn, Starting on Mon11/02/20 at 1813, Until Discontinued, severe pain, 1 mL, for pain Scale 7 or greater or pain not relieved by medications for Pain Scale 4 to 6 nalOXone (NARCAN) injection solution (vial) 0.2 mg 0.2 mg, Injection, Every two minutes prn , Starting on Mon11/02/20 at 1840, Until Discontinued, other (Specify), opioid induced respiratory depression - PARTIAL reversal, 0.5 mL, PARTIAL REVERSAL/RESPIRA TORY DEPRESSION If respiratory rate less than 8/minute - call rapid response and administer (until respiratory rate increases to 10/minute). Give IV (preferred), IM or SUBQ nalOXone (NARCAN) injection solution (vial) 0.4 mg 0.4 mg, Injection, Every two minutes prn , Starting on Mon11/02/20 at 1840, Until Discontinued, other (Specify), opioid induced respiratory arrest - FULL reversal, 1 mL, FULL REVERSAL/RESPIRATORY ARREST If patient is not breathing - call CODE BL[facility] and administer. Give IV (preferred), IM or SUBQ nitroglycerin (NITROSTAT) sublingual tablet 0.4 mg 0.4 mg, Sublingual, Every five minutes p rn, Starting on Mon11/03/20 at 1519, Until Discontinued, chest pain, At onset of chest pain, dissolve one tablet under tongue. May repeat every 5 minutes for 3 doses. Do not crush or chew. ondansetron (ZOFRAN ODT) dispersible tablet 4 mg(Linked Group 3) 4 mg, Oral, Four times a day prn, Starti ng on Mon11/02/20 at 1841, Until Discontinued, nausea, vomiting, Use FIRST for nausea / vomiting. If ineffective after 30 minutes use ondansetron IV ondansetron (ZOFRAN) injection solution 4 mg(Linked Group 3) 4 mg, IV, Four times a day prn, Starting on Mon11/02/20 at 1841, Until Discontinued, nausea, vomiting, 2 mL, Use SECOND for nausea / vomiting. If ineffective after 30 minutes and ondansetron oral given , use metoclopramide IV If preference is to further dilute for IV administration: First draw up patient-specific dose, then dilute to 10 mL with 0.9% sodium chloride. senna-docusate sodium (SENOKOT-S;PERICOLACE) tablet 2 tablet(Richelle alba Group 2) 2 tablet, Oral, Two times a day prn, Sta rting on Mon11/02/20 at 1841, Until Discontinued, constipation, Use FIRST for constipation unless patient cannot take oral medications. Order Group 1: aspirin enteric coated tablet 81 mgJump to med 81 mg, Oral, Daily, First dose on Mon at 0900, Until Discontinued, Post- Procedure (Cath)
Tablet should be swallowed whole and not be divided, crushed or chewed.
And PHARMACIST: Discontinue previous dose of Aspirin the patient was taking prior to procedure () STAT, ONCE, On Mon11/03/20 at 1540, For 1 occurrence, PHARMACIST: Discontinue previous dose of Aspirin the patient was taking prior to procedure, Post- Procedure (Cath) Group 2: senna-docusate sodium (SENOKOT-S;PERICOLACE) tablet 2 tabletJump to med 2 tablet, Oral, Two times a day prn, Sta rting on Mon11/02/20 at 1841, Until Discontinued, constipation
Use FIRST for constipation unless patient cannot take oral medications.
And bisacodyl (DULCOLAX) suppository 10 mgJump to med 10 mg, Rectal, One time a day prn, Start ing on Mon11/02/20 at 1841, Until Discontinued, constipation
Use SECOND for constipation. If patient cannot take oral medications, use first for constipation.
And docusate sodium (THEREVAC-SB MINI;ENEMEEZ MINI) 283 MG enema 1 enemaJump to med 1 enema, Rectal, One time a day prn, Sta rting on Mon11/02/20 at 1841, Until Discontinued, constipation
Use THIRD for constipation - if no BM 8 hours after dulcolax suppository. If patient canno t take oral medications, use second for constipation.
Group 3: ondansetron (ZOFRAN ODT) dispersible tablet 4 mgJump to med 4 mg, Oral, Four times a day prn, Starti ng on Mon11/02/20 at 1841, Until Discontinued, nausea, vomiting
Use FIRST for nausea / vomiting. If ineffective after 30 minutes use ondansetron IV
And ondansetron (ZOFRAN) injection solution 4 mgJump to med 4 mg, IV, Four times a day prn, Starting on Mon11/02/20 at 1841, Until Discontinued, nausea, vomiting, 2 mL
Use SECOND for nausea / vomiting. If ineffective after 30 minutes and ondan setron oral given, use metoclopramide IV If preference is to further dilute for IV administration: First draw up patient-specific dose, then dilute to 10 mL with 0.9% sodium chloride.
And metoclopramide (REGLAN) inj soln 5 mgJump to med 5 mg, IV, Every eight hours prn, Startin g on Mon11/02/20 at 1841, Until Discontinued, nausea, vomiting, 1 mL
Use THIRD for nausea / vomiting. If ineffective after 30 minutes and ondan setron oral and IV given, call provider for alternative. If preference is to further dilute for IV administration: First draw up patient-specific dose, then dilute to 10 mL with 0.9% sodium chloride.
documented in this encounter
== END 2020-11-02 16:50 ==
LOC: FB.ED 14:03
DX: I21.09 ST elevation (STEMI) myocardial infarction involving other coronary artery of anterior wall (principal); I21.19 ST elevation (STEMI) myocardial infarction involving other coronary artery of inferior wall; R79.82 Elevated C-reactive protein (CRP); Z20.822 Contact with and (suspected) exposure to COVID-19
CPT/HCPCS: 36415; 71045; 80053; 81001; 84484; 85025; 85379; 85610; 85730; 86140; 87635; 93005; 96365; 96375; 96376; 99285; A9270; J1644; J2060; J3490; J7030; U0002